=== PATIENT | female | born 1975 | race American Indian/Alaskan Native ===

== ENCOUNTER → 2019-09-01 13:09 | Outpatient (BNVA) | payer MEDICAID, SELFPAY | PROVIDERS: Family Provider Nurse Practitioner Family; PCP Nurse Practitioner Family; Visit Provider Psychiatry & Neurology Psychiatry | DX: F33.2 Major depressive disorder, recurrent severe without psychotic features (principal); F43.12 Post-traumatic stress disorder, chronic; F60.3 Borderline personality disorder | CPT/HCPCS: 99213 ==

== ENCOUNTER 2019-09-02 05:59 | Day surgery (SDC) | payer MEDICAID, SELFPAY ==
[2019-09-02 06:13] LABS: OR HCG Qualitative Urine Negative (Negative)
[2019-09-02 06:26] VITALS: BP 148/98; PULSE 62; RESP 18; TEMP 36.6; O2SAT 94
--- NOTE | 2019-09-02 06:35 | ANES.PREANES ---
Pre-Anesthetic Assessment Pre-Anesthetic Assessment: Height/Weight: Height 1.71 m Weight 138.346 kg Preop Diagnosis: Right carpal tunnel syndrome Proposed Procedure: Operation Date: 09/02/19 07:00 Proposed Procedures p Carpal Tunnel Release(Right) - Issac Marino MD Was Beta Damian taken within 24 hours: N/A PFSH Anesthesia PFSH: Medical History (Updated 09/01/19 @ 10:58 by More Mejia RN) H/O nephrolithotomy with removal of calculi (Acute) Surgical History H/O wrist surgery (Acute) Left wrist surg. H/O: knee surgery (Acute) Right knee surg History of facial surgery (Acute) Social History (Updated 09/01/19 @ 13:34 by Jed Gomez LPN) Smoking and tobacco status: current every day smoker cigarettes Packs smoked per day: 0.5 Years cigarettes smoked: 20 Quit status (tobacco): has tried quititng Number of times tried to quit tobacco: 4 Second hand smoke exposure: No Smoking risk assessment/counseling performed?: No Data Anesthesia Other Labs: Laboratory Results - last 48 hr 09/02/19 06:11 Urine HCG, Qual Negative Cardiac Studies: No Data to Display
[2019-09-02] MEDS: sodium chloride 0.9% 1,000 ML 30 ML IV (06:50)
--- NOTE | 2019-09-02 06:58 | ANES.PREANES ---
Pre-Anesthetic Assessment Pre-Anesthetic Assessment: Height/Weight: Height 1.71 m Weight 138.346 kg Temp Pulse Resp BP Pulse Ox 97.9 F 62 18 148/98 94 09/02/19 06:26 09/02/19 06:26 09/02/19 06:26 09/02/19 06:26 09/02/19 06:26 Preop Diagnosis: Right carpal tunnel syndrome Proposed Procedure: Operation Date: 09/02/19 07:00 Proposed Procedures p Carpal Tunnel Release(Right) - Issac Marino MD Last intake: Intake Last Liquid Date 09/02/19 Last Liquid Time 05:00 Last Solid Date 09/01/19 Last Solid Time 23:00 Social: Social History: Tobacco Packs per day: 1/2 ppd Pack years: 14.5 Airway: Submandibular: WNL Cervical ROM: WNL MP: 1 Additional comments: edentulous CV/HEM: CV/HEM: HTN Comments: rx'd 2 months : Comments: incontience Musc/skel: Musc/skel: Lower Back Pain Comments: left radiculopathy Anesthetic Plan: ASA status: III PFSH Anesthesia PFSH: Medical History (Updated 09/01/19 @ 10:58 by More Mejia RN) H/O nephrolithotomy with removal of calculi (Acute) Surgical History H/O wrist surgery (Acute) Left wrist surg. H/O: knee surgery (Acute) Right knee surg History of facial surgery (Acute) Social History (Updated 09/01/19 @ 13:34 by Jed Gomez LPN) Smoking and tobacco status: current every day smoker cigarettes Packs smoked per day: 0.5 Years cigarettes smoked: 20 Quit status (tobacco): has tried quititng Number of times tried to quit tobacco: 4 Second hand smoke exposure: No Smoking risk assessment/counseling performed?: No Data Anesthesia Other Labs: Laboratory Results - last 48 hr 09/02/19 06:11 Urine HCG, Qual Negative Cardiac Studies: No Data to Display
--- NOTE | 2019-09-02 07:08 | PM.HPUD ---
H&P update H&P Update: DATE OF SURGERY/PROCEDURE: 09/02/19 DATE H&P PERFORMED: 07/30/19 H&P UPDATE INFORMATION: No changes to prior documentation PREOP DIAGNOSIS: Right Carpal Tunnel Syndrom PRIMARY INDICATION FOR PROCEDURE: Same PLANNED PROCEDURE: Operation Date: 09/02/19 07:00 Proposed Procedures p Carpal Tunnel Release(Right) - Issac Marino MD Full H&P Perinent History: Medical/Surgical History: Medical History (Updated 08/31/19 @ 16:22 by Jed Gomez LPN) H/O nephrolithotomy with removal of calculi (Acute) Social History: Social History Smoking and tobacco status: current every day smoker cigarettes Packs smoked per day: 0.5 Years cigarettes smoked: 20 Quit status (tobacco): has tried quititng Number of times tried to quit tobacco: 4 Second hand smoke exposure: No Smoking risk assessment/counseling performed?: No
--- NOTE | 2019-09-02 08:01 | PM.HPUD ---
H&P update H&P Update: DATE OF SURGERY/PROCEDURE: 09/02/19 DATE H&P PERFORMED: 07/30/19 PLANNED PROCEDURE: Operation Date: 09/02/19 07:00 Proposed Procedures p Carpal Tunnel Release(Right) - Issac Marino MD Full H&P HPI: HPI: Patient is a 44-year-old here for elective right carpal tunnel release. She was previously seen in clinic on 07/30/2019 and surgery was discussed. ROS: ROS: He is a smoker but denies any shortness of breath or coughing. She has no chest pain or palpitations. She describes numbness in her right hand digits as previously outlined Medications/Allergies: Current Medications: Current Medications Generic Name Dose Route Start Last Admin Trade Name Freq PRN Reason Stop Dose Admin Sodium Chloride 1,000 mls @ 30 ml s/hr 09/02/19 05:45 09/02/19 06:50 Sodium Chloride 0.9% IV 09/03/19 05:44 30 mls/hr .Q24H JORJE Administration Perinent History: Medical/Surgical History: Medical History (Updated 08/31/19 @ 16:22 by Jed Gomez LPN) H/O nephrolithotomy with removal of calculi (Acute) Social History: Social History Smoking and tobacco status: current every day smoker cigarettes Packs smoked per day: 0.5 Years cigarettes smoked: 20 Quit status (tobacco): has tried quititng Number of times tried to quit tobacco: 4 Second hand smoke exposure: No Smoking risk assessment/counseling performed?: No Pertinent Exam Findings: PHYSICAL EXAM: alert, oriented x 3, clear to auscultation bilaterally and regular rate & rhythm OTHER PERTINENT EXAM FINDINGS: The patient has a positive Tinel's and compression test across the right wrist A&P Assessment and plan (1) Right carpal tunnel syndrome: Status: Acute Code(s): G56.01 - Carpal tunnel syndrome, right upper limb Additional A&P Information We will proceed with a right carpal tunnel release as previously discussed.
[2019-09-02 08:03] VITALS: BP 142/91; PULSE 60; RESP 18; TEMP 36.1; O2SAT 96
--- NOTE | 2019-09-02 08:08 | P.OP_ITS ---
Operative Report Date of procedure: 09/02/19 Preop Diagnosis: Right carpal tunnel syndrome Post-op diagnosis: same Post-op Findings: Same Procedure Done: Right carpal tunnel release Anesthesia: Chely Estimated blood loss (mL): 10 Tourniquet time (min): 22 Complications: None Findings: No masses or space-occupying lesions were seen within the carpal tunnel Condition: stable Disposition: same day Procedure: Patient was taken to the operating room and anesthesia provided by the anesthesia service. She was prepped and draped with the arm exposed. A ti meout was performed. A 3 cm long incision was made in line with the fourth ray from the distal edge of the carpal tunnel extending proximally. The subcutaneous fat and palmar fascia was divided with a scalpel blade. Under loupe magnification the ulnar neurovascular bundle was identified distally. A hemostat could be passed under the transverse carpal ligament allowing the distal 25% to be divided. A slotted guide was then passed beneath the transverse carpal ligament and the middle 50% divided. Blunt scissors were then passed over the guide freeing the proximal ligament. The tourniquet was deflated. Hemostasis provided with electrocautery. Wound edges were infiltrated with 10 cc of a half percent Marcaine solution. Skin edges were reapproximated with 3-0 Prolene. Sterile dressings were applied. The patient was taken to outpatient in stable condition.
[2019-09-02 08:42] VITALS: BP 163/86; PULSE 63; RESP 18; O2SAT 97
== END 2019-09-02 08:49 | disposition home or self-care (01) ==
PROVIDERS: Family Provider Nurse Practitioner Family; PCP Nurse Practitioner Family; Visit Provider Orthopaedic Surgery
PROC: (CPT 64721; principal; 2019-09-02 07:00)
DX: G56.01 Carpal tunnel syndrome, right upper limb (principal); F17.210 Nicotine dependence, cigarettes, uncomplicated
CPT/HCPCS: 64721; 12345; 81025; 84703; 96365; J0690; J2001; J2250; J2704; J3490; J7030

== ENCOUNTER 2019-09-28 20:00 | Outpatient (CLI) | payer MEDICAID, SELFPAY | END 2019-09-28 20:01 | disposition home or self-care (01) | LOC: SLEEP 09-29 09:12 | PROVIDERS: Family Provider Nurse Practitioner Family; PCP Nurse Practitioner Family; Visit Provider Nurse Practitioner Family | DX: G47.33 Obstructive sleep apnea (adult) (pediatric) (principal); R09.02 Hypoxemia | CPT/HCPCS: 95810 ==

== ENCOUNTER → 2019-11-05 10:15 | Outpatient (BNVA) | payer MEDICAID, SELFPAY | PROVIDERS: Family Provider Nurse Practitioner Family; PCP Nurse Practitioner Family; Referring Provider Family Medicine; Visit Provider Obstetrics & Gynecology | DX: N39.3 Stress incontinence (female) (male) (principal); N92.0 Excessive and frequent menstruation with regular cycle | CPT/HCPCS: 80053; 84443 ==

== ENCOUNTER → 2019-11-19 11:35 | Outpatient (BNVA) | payer MEDICAID, SELFPAY | PROVIDERS: Family Provider Nurse Practitioner Family; PCP Nurse Practitioner Family; Visit Provider Psychiatry & Neurology Psychiatry | DX: F60.3 Borderline personality disorder (principal); F41.1 Generalized anxiety disorder; F43.12 Post-traumatic stress disorder, chronic; F33.2 Major depressive disorder, recurrent severe without psychotic features; F17.200 Nicotine dependence, unspecified, uncomplicated | CPT/HCPCS: 99214 ==

== ENCOUNTER → 2019-11-25 10:53 | Outpatient (BNVA) | payer MEDICAID, SELFPAY | PROVIDERS: Family Provider Nurse Practitioner Family; PCP Nurse Practitioner Family; Visit Provider Counselor Professional | DX: F60.3 Borderline personality disorder (principal); F43.12 Post-traumatic stress disorder, chronic | CPT/HCPCS: 90834 ==

== ENCOUNTER → 2019-12-02 10:48 | Outpatient (BNVA) | payer MEDICAID, SELFPAY | PROVIDERS: Family Provider Nurse Practitioner Family; PCP Nurse Practitioner Family; Visit Provider Counselor Professional | DX: F43.12 Post-traumatic stress disorder, chronic (principal) | CPT/HCPCS: 90834 ==

== ENCOUNTER → 2019-12-03 15:51 | Outpatient (BNVA) | payer MEDICAID, SELFPAY | PROVIDERS: Family Provider Nurse Practitioner Family; PCP Nurse Practitioner Family; Visit Provider Obstetrics & Gynecology | DX: N92.0 Excessive and frequent menstruation with regular cycle (principal) | CPT/HCPCS: 76830 ==

== ENCOUNTER → 2019-12-04 07:31 | Outpatient (BNVA) | payer MEDICAID, SELFPAY | PROVIDERS: Family Provider Nurse Practitioner Family; PCP Nurse Practitioner Family; Visit Provider Obstetrics & Gynecology | DX: N92.0 Excessive and frequent menstruation with regular cycle (principal) | CPT/HCPCS: 88305 ==

== ENCOUNTER → 2019-12-09 08:30 | Outpatient (BNVA) | payer MEDICAID, SELFPAY | PROVIDERS: Family Provider Nurse Practitioner Family; PCP Nurse Practitioner Family; Visit Provider Counselor Professional | DX: F43.12 Post-traumatic stress disorder, chronic (principal); F33.2 Major depressive disorder, recurrent severe without psychotic features; F41.1 Generalized anxiety disorder | CPT/HCPCS: 90834 ==

== ENCOUNTER → 2019-12-11 08:05 | Outpatient (BNVA) | payer MEDICAID, SELFPAY | PROVIDERS: Family Provider Nurse Practitioner Family; PCP Nurse Practitioner Family; Visit Provider Counselor Professional | DX: F43.12 Post-traumatic stress disorder, chronic (principal); F60.3 Borderline personality disorder; F33.2 Major depressive disorder, recurrent severe without psychotic features | CPT/HCPCS: 90834 ==

== ENCOUNTER → 2019-12-17 09:05 | Outpatient (BNVA) | payer MEDICAID, SELFPAY | PROVIDERS: Family Provider Nurse Practitioner Family; PCP Nurse Practitioner Family; Visit Provider Counselor Professional | DX: F43.12 Post-traumatic stress disorder, chronic (principal); F60.3 Borderline personality disorder | CPT/HCPCS: 90834 ==

== ENCOUNTER → 2019-12-25 07:37 | Outpatient (BNVA) | payer MEDICAID, SELFPAY | PROVIDERS: Family Provider Nurse Practitioner Family; PCP Nurse Practitioner Family; Visit Provider Counselor Professional | DX: F43.12 Post-traumatic stress disorder, chronic (principal); F60.3 Borderline personality disorder | CPT/HCPCS: 90834 ==

== ENCOUNTER → 2019-12-29 08:18 | Outpatient (BNVA) | payer MEDICAID, SELFPAY | PROVIDERS: Family Provider Nurse Practitioner Family; Visit Provider Counselor Professional | DX: F43.12 Post-traumatic stress disorder, chronic (principal); F60.3 Borderline personality disorder | CPT/HCPCS: 90834 ==

== ENCOUNTER → 2020-01-05 08:47 | Outpatient (BNVA) | payer MEDICAID, SELFPAY | PROVIDERS: Family Provider Nurse Practitioner Family; Visit Provider Counselor Professional | DX: F43.12 Post-traumatic stress disorder, chronic (principal); F60.3 Borderline personality disorder | CPT/HCPCS: 90834 ==

== ENCOUNTER → 2020-01-08 11:02 | Outpatient (BNVA) | payer MEDICAID, SELFPAY | PROVIDERS: Family Provider Nurse Practitioner Family; Visit Provider Obstetrics & Gynecology | DX: N39.3 Stress incontinence (female) (male) (principal); N92.0 Excessive and frequent menstruation with regular cycle | CPT/HCPCS: 80053; 81000; 85027 ==

== ENCOUNTER 2020-01-12 08:23 | Day surgery (SDC) | payer MEDICAID, SELFPAY ==
[2020-01-08 14:20] VITALS: BMI 47.1
[2020-01-12] VITALS (7 sets, daily range): BP systolic 142–149; BP diastolic 87–98; PULSE 69–87; RESP 12–23; TEMP 36.2–37.1; O2SAT 90–100
[2020-01-12 08:53] LABS: OR HCG Qualitative Urine Negative (Negative)
--- NOTE | 2020-01-12 09:04 | P.ANESASSM_ITS ---
Pre-Anesthetic Assessment Pre-Anesthetic Assessment: Height/Weight: Height 1.73 m Weight 140.614 kg Temp Pulse Resp BP Pulse Ox 97.1 F L 69 18 142/90 95 01/12/20 08:43 01/12/20 08:43 01/12/20 08:43 01/12/20 08:43 01/12/20 08:43 Preop Diagnosis: Menorrhagia, Dysmenorrhea, Stress urinary incontinence Proposed Procedure: Operation Date: 01/12/20 09:35 Proposed Procedures p Hysteroscopy w/ Ablation w/ Novasure/[id number]/N92.0/N94.6/R32(Not Applicable) - Jah Barrera MD s Single incision suburethral sling(Not Applicable) - Jah Barrera MD Last intake: Intake Last Liquid Date 01/12/20 Last Liquid Time 23:00 Last Solid Date 01/11/20 Last Solid Time 23:00 Social: Social History: No alcohol and No tobacco Exam: Pre-Anes Outpt Exam: alert, oriented x 3, clear to auscultation bilaterally and regular rate & rhythm Airway: Submandibular: WNL Cervical ROM: WNL MP: 2 Dentition: False (upper) and Other (poor dentation) History/ROS: No significant history except as noted Pulmonary: Pulmonary: SHARPE CV/HEM: CV/HEM: HTN : : None reported Hepatic: Hepatic: None reported GI: GI: None reported Metabolic: Metabolic: Morbid obesity Neuropsych: Neuropsych: Anxiety, Bipolar and Depression Anesthetic Plan: ASA status: 3 Anesthesia: Anesthesia Evaluation and General Risk of > 500 ml blood loss (7ml/kg in children): No PFSH Anesthesia PFSH: Medical History Borderline personality disorder Generalized anxiety disorder Hypertension Major depressive disorder, recurrent severe without psychotic features Post-traumatic stress disorder, chronic Renal stones Patient with multiple treatment of kidney stones of the left kidney. Surgical History H/O wrist surgery Left wrist surg. History of arthroscopy of right knee (10/05/08) With partial medial and lateral meniscectomy, Chondroplasty of patellofemoral joint. [place]. Wei [place] [facility] [place], [place]. History of facial surgery Treatment of abscess History of lithotripsy (04/17/10) Left lithotripsy, Cystoscopy with ureterorenoscopy, ureteral stent placement. Performed by Dr. Ochoa at [facility] [place], [place]. History of lithotripsy (03/21/09) Left kidney. Performed by Dr. Ochoa at [facility] [place]. History of lithotripsy (12/27/08) Left kidney. Performed by Dr. Ochoa at [facility] in [place]. History of lithotripsy (11/22/08) Left kidney, Cystoscopy with ureteral stent. Performed by Dr. Ochoa at [facility] [place]. History of tubal ligation (06/29/09) Essure. Performed by Dr. Winchester at [facility] in [place], [place]. Family History Family/Other Diabetes Paternal uncle Heart disease maternal aunt Breast cancer Maternal great aunt Thyroid condition maternal aunt Grandmother Diabetes Maternal Heart disease maternal Social History Smoking and tobacco status: current every day smoker cigarettes Packs smoked per day: 0.5 Years cigarettes smoked: 20 Quit status (tobacco): has tried quititng Number of times tried to quit tobacco: 4 Alcohol intake: never Substance/Drug Use: never Data Anesthesia Other Labs: Laboratory Results - last 48 hr 01/12/20 08:51 Urine HCG, Qual Negative Cardiac Studies: No Data to Display
[2020-01-12] MEDS: ketorolac 30 mg/mL INJ IVP (09:10)
[2020-01-12] MEDS: phenazopyridine 100 mg Tablet 200 MG PO (09:10)
[2020-01-12] MEDS: sodium chloride 0.9% 1,000 ML 30 ML IV (09:11)
--- NOTE | 2020-01-12 09:40 | W.PM.OPSUD ---
Surgery/Procedure H&P Update DATE OF PROCEDURE: January 12, 2020 DATE H&P PERFORMED: 01/08/20 H&P UPDATE INFORMATION: I have reviewed H&P completed within last 30 days, I have examined patient prior to procedure, No changes to prior documentation and H&P is in [facility] EMR on date indicated PREOP DIAGNOSIS: Menorrhagia, Dysmenorrhea, Stress urinary incontinence PLANNED PROCEDURE: Operation Date: 01/12/20 09:35 Proposed Procedures p Hysteroscopy w/ Ablation w/ Novasure/[id number]/N92.0/N94.6/R32(Not Applicable) - Jah Barrera MD s Single incision suburethral sling(Not Applicable) - Jah Barrera MD
[2020-01-12] MEDS: vasopressin 20 unit/mL INJ INJECTION (10:05)
--- NOTE | 2020-01-12 10:47 | P.OP_ITS ---
Operative Report Date of procedure: January 12, 2020 Pre-op Diagnosis: Menorrhagia, Dysmenorrhea, Stress urinary incontinence Post-op Diagnosis: Menorrhagia, Dysmenorrhea, Stress urinary incontinence Procedure Done: Single incision suburethral sling, Cystoscopy, Hysteroscopy with D&C and endometrial ablation with NovaSure, Paracervical block Specimens removed/disposition: Endometrial curettings with polyp Surgeon: Jah Barrera Anesthesia: General and Other (Paracervical block with 2% lidocaine with epineph rine) Estimated blood loss (mL): 10 IV fluids (mL): 600 Complications: None Findings: Small polyp noted in the right cornual region of the uterus. No other abnormalities noted in the endometrial cavity. Both tubal ostia identified. Minimal uterine prolapse. First to second-degree cystocele noted. Normal- appearing bladder with no masses or abnormalities noted inside of the bladder. Brief History: Patient is a 44-year-old white female 2, para 1-0-1-1 who currently has Esher present for sterilization. She presented to the office initially with complaint of urinary incontinence. She reported that she had been leaking urine since her last delivery. She reports leaking urine with changes in position and leaks without even knowing that she had leaked. She also leaks with coughing, sneezing, laughing. She states her leaking is severe enough that she wears pads daily. On exam, she was found to have hypermobility to the urethra. Treatment options were discussed and she is presenting for a suburethral sling. She also complained of heavy, painful menstrual bleeding. Her bleeding was regular in timing and she would bleed for 4 days with 3 days being heavy. During the heaviest times, she would change a pad and tampon every 1-1/2 to 2 hours and will still bleed through to her clothing at times. She reported dime sized clots. She had used control pills in the past. Ultrasound had been performed which showed a normal-appearing uterus with normal endometrial lining. Hysteroscopy in the office was performed with no abnormalities noted. As result of the heavy bleeding, she wished to proceed to surgical treatment by endometrial ablation. Procedure: The patient was taken to the operating room where general anesthesia was obta ined. She was prepped and draped in the usual sterile fashion in the dorsal supine position with legs in Deangelo style stirrups. Sequential compression boots had been placed prior to starting the case. Patient had voided just before coming to the operating room. Exam under anesthesia was performed and the patient was noted to have minimal uterine prolapse with first to second-degree cystocele. A weighted speculum was placed in the vagina and the cervix was grasped with a single-tooth tenaculum. A paracervical block was performed with a total of 10 mL of 2% lidocaine with epinephrine used. The cervix was serially dilated until a operative hysteroscope could be passed. Crystalloid solution was used as a distention media. The endometrial cavity was inspected and appeared normal. She did have a small polyp in the right cornual region of the uterus. Both tubal ostia were visualized.. Using sharp curette, the polyp was removed. Using the NovaSure sound, endometrial cavity length was measured at 5.5 cm. The NovaSure device was inserted and device was deployed. The device was moved up and down and left and right until no further with adjustment occurred. Uterine width was measured at 4.8 cm. Settings were entered in the NovaSure machine and wattage was set at 145 [address]. Cavity integrity check was performed and integrity confirmed. Device was then activated. Total treatment time was 48 seconds. Device was removed. The tenaculum was removed and there was minimal bleeding from the tenaculum site. Arreola catheter was inserted. The suburethral area was injected with dilute Pitressin solution. A vertical incision was made underneath the urethra in the midline with a knife. The skin was bluntly dissected off of the periurethral fascia bilaterally. Using a solyx single incision suburethral sling, the sling was inserted at the mid urethral level at a 45 degree angle to the urethra and brought behind the pubic rami on the right side. This was repeated in a similar fashion on the left side and the sling tensioned until it was set just against the periurethral tissue. Catheter was removed and cystoscopy performed. Bladder was normal in appearance with no masses noted. No sling material noted within the bladder or urethra. Approximately 100 mL of fluid was left within the bladder. The skin under the urethra was reapproximated using 3-0 Vicryl suture in a running locking fashion. Patient tolerated the procedure well. Sponge and needle counts were correct. DRAINS: None POSTOPERATIVE STATUS: The patient was transferred to the recovery room in s atisfactory condition DISPOSITION: Discharge to home when criteria was met. Patient to void prior to discharge. If unable to void, then will be sent home with either catheter or self-catheterization. FOLLOWUP APPOINTMENT: Followup appointment had been scheduled on 01/25/2020 in my office. MEDICATIONS: She received prescriptions for: [place] 5/325, 1 to 2 tablets every 6 hours as needed for pain, #10 10, 0 refills She may resume her usual home medications
--- NOTE | 2020-01-12 11:15 | P.HPUD_ITS ---
Surgery/Procedure H&P Update DATE OF PROCEDURE: January 12, 2020 DATE H&P PERFORMED: 01/08/20 H&P UPDATE INFORMATION: I have reviewed H&P completed within last 30 days, I have examined patient prior to procedure, No changes to prior documentation and H[place] is in [facility] [place] on date indicated PREOP DIAGNOSIS: Menorrhagia, Dysmenorrhea, Stress urinary incontinence PLANNED PROCEDURE: Operation Date: 01/12/20 09:35 Proposed Procedures p Hysteroscopy w/ Ablation w/ Novasure/[id number]/N92.0/N94.6/R32(Not Applicable) - Jah Barrera MD s Single incision suburethral sling(Not Applicable) - Jah Barrera MD
--- NOTE | 2020-01-12 12:11 | PC.NURSE ---
removed packing per doctor orders. patient voided 200ml of orange colored urinel. bladder scan performed only 12ml remained. results given to dr. james. patient tolerated well.
== END 2020-01-12 13:13 | disposition home or self-care (01) ==
PROVIDERS: PCP Nurse Practitioner Family; Visit Provider Obstetrics & Gynecology
PROC: 0U598ZZ Destruction of Uterus, Via Natural or Artificial Opening Endoscopic (ICD-10-PCS; CPT 58563; principal; 2020-01-12 09:35)
PROC: (CPT 57288; 2020-01-12 09:35)
PROC: (CPT 58120; 2020-01-12 09:35)
DX: N92.0 Excessive and frequent menstruation with regular cycle (principal); N94.6 Dysmenorrhea, unspecified; N39.3 Stress incontinence (female) (male); I10 Essential (primary) hypertension; E66.01 Morbid (severe) obesity due to excess calories; Z68.42 Body mass index [BMI] 45.0-49.9, adult; F41.9 Anxiety disorder, unspecified; F17.210 Nicotine dependence, cigarettes, uncomplicated; Z79.1 Long term (current) use of non-steroidal anti-inflammatories (NSAID)
CPT/HCPCS: 57288; 58563; 12345; 84703; 88305; 96374; C1771; J0330; J0690; J1100; J1885; J2001; J2405; J2704; J3010; J3490; J7030

== ENCOUNTER → 2020-01-21 08:05 | Outpatient (BNVA) | payer MEDICAID, SELFPAY | PROVIDERS: PCP Nurse Practitioner Family; Visit Provider Counselor Professional | DX: F43.12 Post-traumatic stress disorder, chronic (principal); F60.3 Borderline personality disorder | CPT/HCPCS: 90834 ==

== ENCOUNTER 2020-01-22 11:23 | Emergency (ER) | payer MEDICAID, SELFPAY ==
[2020-01-22 11:28] VITALS: BP 138/78; PULSE 91; RESP 17; TEMP 37; O2SAT 95; BMI 46.3
--- NOTE | 2020-01-22 11:37 | ED_ITS ---
HPI - Abdominal Pain General: Chief Complaint: Abdominal Pain Stated Complaint: abd pain/poss gallbladder/sent by dr friend Time Seen by Provider: 01/22/20 11:30 History of Present Illness: HPI narrative: Patient comes in today with complaints of left upper quadrant abdominal pain. Patient states that she has had pain on and off in this area for the last few weeks. States that nothing seems to improve with our seems to make it worse. She has been seen her provider who thought that maybe she was having some gallbladder pain. Patient appears well. Patient appears in mild to no pain. Patient has recently had a appellation for some dysfunctional uterine bleeding about 2 weeks ago. Patient does have some mild vaginal drainage but has been told that that was normal post procedure. Patient denies any fever, nausea vomiting, or syncope. Review of Systems General: Reports: 10 or more systems reviewed and unremarkable except in HPI and below GI: Reports: abdominal pain PFS ED PFSH: Medical History (Updated 01/22/20 @ 14:08 by BRIDGET Levy) Borderline personality disorder Generalized anxiety disorder Hypertension Major depressive disorder, recurrent severe without psychotic features Post-traumatic stress disorder, chronic Renal stones Patient with multiple treatment of kidney stones of the left kidney. Surgical History H/O wrist surgery Left wrist surg. History of arthroscopy of right knee (10/05/08) With partial medial and lateral meniscectomy, Chondroplasty of patellofemoral joint. Performed by Dr. Wei at [facility] in [place], [place]. History of facial surgery Treatment of abscess History of lithotripsy (04/17/10) Left lithotripsy, Cystoscopy with ureterorenoscopy, ureteral stent placement. Performed by Dr. Ochoa at [facility] in [place], [place]. History of lithotripsy (03/21/09) Left kidney. Performed by Dr. Ochoa at [facility] in [place], [place]. History of lithotripsy (12/27/08) Left kidney. Performed by Dr. Ochoa at [facility] in [place], [place]. History of lithotripsy (11/22/08) Left kidney, Cystoscopy with ureteral stent. Performed by Dr. Ochoa at [facility] in [place], [place]. History of tubal ligation (06/29/09) Essure. Performed by Dr. Winchester at [facility] in [place], [place]. Family History Family/Other Diabetes Paternal uncle Heart disease maternal aunt Breast cancer Maternal great aunt Thyroid condition maternal aunt Grandmother Diabetes Maternal Heart disease maternal Social History Smoking and tobacco status: current every day smoker cigarettes Packs smoked per day: 0.5 Years cigarettes smoked: 20 Quit status (tobacco): has tried quititng Number of times tried to quit tobacco: 4 Alcohol intake: never Physical Exam Const: COMMON NORMALS: no acute distress and patient oriented x3 GENERAL APPEARANCE: cooperative HENMT: COMMON NORMALS: normocephalic and Normal external nose present HEAD & SCALP: normal to inspection and normocephalic NOSE: Normal external nose present MOUTH: Normal oral and palatal mucosa present THROAT: posterior oropharynx normal Eye: GENERAL EYE: appearance normal, both eyes and all related structures Neck/C-Spine: COMMON NORMALS: full ROM Lymph: LYMPHATIC: no lymphadenopathy noted Chest: COMMONS NORMALS: normal inspection of the chest Resp: COMMON NORMALS: normal respiratory effort EFFORT & INSPECTION: Yes able to speak in complete sentences Cardio: COMMON NORMALS: regular rate and regular rhythm RATE: regular rate RHYTHM: regular rhythm GI: COMMON NORMALS: Soft to palpation INSPECTION: Yes normal to inspection AUSCULTATION: Yes normoactive bowel sounds PALPATION: Yes Soft to palpation and Yes Tenderness to palpation present (GI) Details: LUQ : COMMON NORMALS: Yes no CVA tenderness BLADDER/KIDNEY EXAM: Yes no CVA tenderness Back/Pelvis: COMMON NORMALS: no CVA tenderness and thoracic and lumbar spine normal to inspection Extremity: COMMON NORMALS: normal to inspection Neuro: COMMON NORMALS: patient oriented x3 and moves all extremities Psych: COMMON NORMALS: mental status grossly normal and cooperative Skin: COMMON NORMALS: no rashes or lesions noted GENERAL SKIN EXAM: no rashes or lesions noted Course Vital Signs: Vital signs: Vital Signs Temperature 98.6 F 01/22/20 11:28 Pulse Rate 76 01/22/20 12:52 Respiratory Rate 20 H 01/22/20 12:52 Blood Pressure 127/96 01/22/20 12:52 Pulse Oximetry 93 01/22/20 12:52 MDM - Abdominal Pain MDM Narrative: Medical decision making narrative: Patient comes in today with left upper quadrant abdominal pain. Patient reports that the pain sometimes radiates up into her chest. On exam patient has left upper abdominal tenderness. Abdomen otherwise is normal. Normal bowel sounds. Vital signs were normal. Respirations are even. Skin is warm and dry. Differential diagnosis includes but not limited to ACS, angina, peptic ulcer disease, renal calculi, cholecystitis, pancreatitis, diverticulitis. Laboratory values noted a normal CBC and a normal BMP with no signs of liver inflammation. Urinalysis was normal. Chest x-ray noted some abnormality in the left hilar lung, with recommendations for CT scan. CT scan of the abdomen pelvis and chest was done it was noted that patient had scar tissue in the lung, but she also had a large obstructing renal calculi in the left kidney. No hydronephrosis was noted though. Reviewed with patient with recommendations for follow-up with urology. Patient was given medications for pain. Patient reported understanding of care plan and need for follow-up or return to the ER. Lab Data: Labs: Lab Results 01/22/20 01/22/20 01/22/20 Range/Units 11:51 11:51 11:51 WBC 7.3 (4.0-10.0) 10^3/ uL RBC 4.67 (4.1-5.3) 10^6/u L Hgb 13.7 (11.5-15.3) g/dL Hct 43.3 (37.0-47.0) % MCV 92.7 (81-99) fL MCH 29.3 (28.0-34.0) pg MCHC 31.6 (30.0-36.0) g/dL RDW 14.3 (12.1-15.1) % Plt Count 281 (130-400) 10^3/c mm MPV 9.8 (7.4-10.4) fL Neut % (Auto) 62.2 % Lymph % (Auto) 27.5 % Towner % (Auto) 7.1 % Eos % (Auto) 2.6 % Baso % (Auto) 0.5 % Neut # (Auto) 4.5 (1.8-7.7) 10^3/u L Lymph # (Auto) 2.0 (0.8-4.8) 10^3/u L Towner # (Auto) 0.5 (0.2-0.9) 10^3/u L Eos # (Auto) 0.2 (0.0-0.8) 10^3/u L Baso # (Auto) 0.0 (0.0-0.1) 10^3/u L Nucleated RBC % (a uto) 0 % Nucleated RBCs # 0.0 /100WBC D-Dimer 0.35 (0-0.59) ug/mIFE U Sodium 141 (136-145) mmol/L Potassium 3.8 (3.5-5.1) mmol/L Chloride 103 (98-107) mmol/L Carbon Dioxide 26 (22-29) mmol/L Anion Gap 15.8 (5-19) BUN 9 (6-20) mg/dL Creatinine 0.6 (0.5-0.9) mg/dL GFR Calculation 108.1 (90-130) mL/min Glucose 122 H (65-115) mg/dL Calculated Osmolal ity 289 (285-295) mOsm/k g Calcium 9.2 (8.5-10.5) mg/dL Total Bilirubin 0.3 (0.15-1.2) mg/dL AST 13 (0-32) U/L ALT 15 (0-33) U/L Alkaline Phosphata se 78 (35-105) IU/L Total Protein 6.1 L (6.6-8.7) g/dL Albumin 3.9 (3.5-5.2) g/dL Globulin 2.2 (1.3-4.6) g/dL Lipase 48 (13-60) U/L Urine Color (Yellow) Urine Appearance (CLEAR) Urine pH (5-7) Ur Specific Gravit y (1.005-1.030) Urine Protein (Negative) Urine Glucose (UA) (Normal) Urine Ketones (Negative) Urine Blood (Negative) Urine Nitrate (Negative) Urine Bilirubin (NEGATIVE) Urine Urobilinogen (Negative) mg/dL Ur Leukocyte Rebecca ase (Negative) Urine RBC (0-2) /hpf Urine WBC (0-5) /hpf Ur Squamous Epith Cells (0-5) Urine Bacteria (NONE) Urine Mucus 01/22/20 Range/Units 12:00 WBC (4.0-10.0) 10^3/ uL RBC (4.1-5.3) 10^6/u L Hgb (11.5-15.3) g/dL Hct (37.0-47.0) % MCV (81-99) fL MCH (28.0-34.0) pg MCHC (30.0-36.0) g/dL RDW (12.1-15.1) % Plt Count (130-400) 10^3/c mm MPV (7.4-10.4) fL Neut % (Auto) % Lymph % (Auto) % Towner % (Auto) % Eos % (Auto) % Baso % (Auto) % Neut # (Auto) (1.8-7.7) 10^3/u L Lymph # (Auto) (0.8-4.8) 10^3/u L Towner # (Auto) (0.2-0.9) 10^3/u L Eos # (Auto) (0.0-0.8) 10^3/u L Baso # (Auto) (0.0-0.1) 10^3/u L Nucleated RBC % (a uto) % Nucleated RBCs # /100WBC D-Dimer (0-0.59) ug/mIFE U Sodium (136-145) mmol/L Potassium (3.5-5.1) mmol/L Chloride (98-107) mmol/L Carbon Dioxide (22-29) mmol/L Anion Gap (5-19) BUN (6-20) mg/dL Creatinine (0.5-0.9) mg/dL GFR Calculation (90-130) mL/min Glucose (65-115) mg/dL Calculated Osmolal ity (285-295) mOsm/k g Calcium (8.5-10.5) mg/dL Total Bilirubin (0.15-1.2) mg/dL AST (0-32) U/L ALT (0-33) U/L Alkaline Phosphata se (35-105) IU/L Total Protein (6.6-8.7) g/dL Albumin (3.5-5.2) g/dL Globulin (1.3-4.6) g/dL Lipase (13-60) U/L Urine Color Yellow (Yellow) Urine Appearance Sl cloudy A (CLEAR) Urine pH 5 (5-7) Ur Specific Gravit y 1.020 (1.005-1.030) Urine Protein Neg (Negative) Urine Glucose (UA) Norm (Normal) Urine Ketones 1+ H (Negative) Urine Blood 2+ H (Negative) Urine Nitrate Negative (Negative) Urine Bilirubin Neg (NEGATIVE) Urine Urobilinogen 1 H (Negative) mg/dL Ur Leukocyte Rebecca ase Trace H (Negative) Urine RBC 0-4 H (0-2) /hpf Urine WBC 5-10 H (0-5) /hpf Ur Squamous Epith Cells 10-15 H (0-5) Urine Bacteria 2+ H (NONE) Urine Mucus 3+ EKG Data ^: EKG 1: Attestation: I personally reviewed and interpreted this EKG as follows: (1151, normal sinus rhythm, 76 bpm, no ectopy, no ST elevation.) Discharge Plan Discharge Patient Disposition: Home, Self-Care Clinical Impression: Calculus of kidney Condition: Stable Prescriptions: New hydrocodone-acetaminophen 5-325 mg tablet 1 tab PO Q6H PRN (Reason: pain) Qty: 14 RF: 0 Discontinued hydrocodone-acetaminophen 5-325 mg Tablet 1 - 2 tab PO Q6H PRN (Reason: Moderate To Severe Pain) Qty: 10 RF: 0 No Action acetaminophen [Tylenol] 325 mg tablet 650 mg PO BID PRN (Reason: fever or pain) RF: 0 gabapentin 300 mg capsule 300 mg PO TID RF: 0 Chantix Starting Month Box 0.5 mg (11)- 1 mg (42) tablets,dose pack See Rx Instructions PO PER PKG DIR Qty: 53 RF: 0 paroxetine HCl 40 mg tablet 40 mg PO QAM Qty: 30 RF: 2 oxcarbazepine [Trileptal] 150 mg tablet 150 mg PO BID Qty: 60 RF: 2 ibuprofen 600 mg tablet 600 mg PO TID PRN (Reason: Pain) RF: 0 losartan 25 mg Tablet 25 mg PO DAILY RF: 0 Discharge Orders: Discharge Order (Routine); Ordered 01/22/20 Ordered By: Denis King Referrals: Jayne Friend NP [Primary Care Provider] - Denis King, CLINIC SCHEDULER [Emergency Provider] - Discharge Diet: Usual diet Discharge Activity: Increase activity as tolerated Patient Instructions: Renal Colic (ED) Activity Restrictions/Additional Instructions: Drink plenty of water. Use medications as needed. Follow-up with primary care in 1 week. Case management will call you regarding follow-up appointment with urology. Return to the ER for high fever or worsening pain. Coding Level of Care Code ED Agency Trainer for Fernanda Nguyen Exam Comprehensive
[2020-01-22 11:50] VITALS: BP 121/70; PULSE 83; RESP 15; O2SAT 93
[2020-01-22 11:59] LABS: Basophils % 0.5 %; Eosinophils # 0.2 10^3/uL (0.0-0.8); Eosinophils % 2.6 %; Hematocrit 43.3 % (37.0-47.0); Hemoglobin 13.7 g/dL (11.5-15.3); Lymphocytes % 27.5 %; Mean Corpuscular HGB Conc 31.6 g/dL (30.0-36.0); Mean Corpuscular Hemoglobin 29.3 pg (28.0-34.0); Mean Corpuscular Volume 92.7 fL (81-99); Mean Platelet Volume 9.8 fL (7.4-10.4); Monocytes # 0.5 10^3/uL (0.2-0.9); Monocytes % 7.1 %; Neutrophils # 4.5 10^3/uL (1.8-7.7); Neutrophils % 62.2 %; Nucleated Red Blood Cells % 0 %; Platelet Count 281 10^3/cmm (130-400); Red Blood Count 4.67 10^6/uL (4.1-5.3); Red Cell Distribution Width 14.3 % (12.1-15.1); White Blood Count 7.3 10^3/uL (4.0-10.0)
--- NOTE | 2020-01-22 12:09 | XR_ITS ---
WS: [id number] PORTABLE CHEST HISTORY: Chest pain. COMPARISON: None available. Increased soft tissue and mild spiculation of the LEFT hilum. Measures 12 x 19 mm centered at the LEF T hilum. No pleural effusion or pneumothorax. Cardiac size: Normal. Mediastinum/Aorta: Normal mediastinum. No osseous abnormality seen. XR/XR chest 1V portable [id number] IMPRESSION: 1. Spiculated nodule centered at the LEFT hilum needs further evaluation. No p rior studies to indicate stability. Recommend follow-up chest CT with IV contra st. LEFT hilar neoplasm, pneumonia or scar needs to be excluded. 2. Normal heart. No pneumonia.
[2020-01-22 12:19] LABS: Alanine Aminotransferase 15 U/L (0-33); Albumin Level 3.9 g/dL (3.5-5.2); Alkaline Phosphatase 78 IU/L (35-105); Anion Gap 15.8 (5-19); Aspartate Amino Transferase 13 U/L (0-32); Blood Urea Nitrogen 9 mg/dL (6-20); Calcium 9.2 mg/dL (8.5-10.5); Carbon Dioxide 26 mmol/L (22-29); Chloride 103 mmol/L (98-107); Globulin 2.2 g/dL (1.3-4.6); Glomerular Filtration Rate 108.1 mL/min (90-130); Glucose 122 mg/dL (65-115); Lipase 48 U/L (13-60); Osmolality Calculated 289 mOsm/kg (285-295); Potassium 3.8 mmol/L (3.5-5.1); Sodium 141 mmol/L (136-145); Total Bilirubin 0.3 mg/dL (0.15-1.2); Total Protein 6.1 g/dL (6.6-8.7)
[2020-01-22 12:34] LABS: Add Urine Microscopic? YES; Bilirubin Urine Neg (NEGATIVE); Blood Urine 2+ (Negative); Glucose Urine UA Norm (Normal); Ketones Urine 1+ (Negative); Leukocyte Esterase Urine Trace (Negative); Nitrate Urine Negative (Negative); Protein Urine Neg (Negative); Urine Color Yellow (Yellow); Urobilinogen Urine 1 mg/dL (Negative); pH Urine 5 (5-7)
[2020-01-22 12:35] LABS: Add Urine Culture? No; Bacteria Urine 2+; Mucus Urine 3+; RBC Urine 0-4 /hpf (0-2)
--- NOTE | 2020-01-22 12:35 | CT_ITS ---
WS: [id number] CT CHEST, ABDOMEN AND PELVIS WITH CONTRAST. HISTORY: Abnormal chest radiograph, abdominal pain. TECHNIQUE: Contiguous 5 mm axial imaging performed through the chest, abdomen and pelvis with IV cont rast, oral contrast has not been provided. Coronal and sagittal reformats chest. Coronal and sagittal reformats through the abdomen and pelvis. All CT scans at [facility] use at least one of these dose optimization techniques: automated exposure control; mA and/or kV adjustment per patient size (includes targeted exams where dose is matched to clinical indication); or iterative reconstruct ion. CONTRAST: Omnipaque 300; 95 mL IV. DLP: 2625.05 mGy.cm COMPARISON: 06/16/[address]: Area of spiculation and soft tissue thickening at the LEFT hilum on recent chest radiograph corresponds to an area of subsegmental linear atelectasis extending from the LEFT hilum. Atelectasis extends into the medial LEFT upper lobe. No centrally obstructing lesion is identified. There is mil d groundglass attenuation bilaterally, greatest in the lower lung barron. No focal pneumonia. No pleu ral effusion or pneumothorax. Small mediastinal and hilar lymph nodes. Normal size aortic and pulmona ry artery. Abdomen CT: Liver, spleen, gallbladder and pancreas are negative. No adrenal mass. No perinephric str anding. Mild dilatation of the LEFT renal pelvis. Change in caliber at the LEFT UP junction. This has been previously described. Negative RIGHT kidney. Normal aorta. No ascites, adenopathy or free air. Small umbilical hernia contains fat. There is a large lipoma in the external oblique muscle on the RIGHT extending into the pelvis. No obs truction of the GI tract. Appendix is not definitely visualized but there is no inflammation. Pelvic CT: Nondistended urinary bladder. Bilateral tubal ovarian clips. There is a very small amount of air along the endometrial canal. No free fluid within the pelvis. Degenerative disc disease with vacuum disc phenomenon from L3-4 to L5-S1. CT/CT chest abd pel w con* IMPRESSION: 1. Soft tissue thickening and spiculation at the LEFT hilum described on radio graph corresponds to a linear subsegmental area of atelectasis in the LEFT uppe r lobe. No adenopathy or mass. 2. Chronic mild LEFT UP junction obstruction. 3. The appendix is not identified but there are no changes of appendicitis or acute inflammation in the abdomen or pelvis. 4. Is a tiny amount of air along the endometrial canal. May be due to recent i nstrumentation. Endometritis may appear similar.
[2020-01-22 12:52] VITALS: BP 127/96; PULSE 76; RESP 20; O2SAT 93
[2020-01-22] MEDS: iohexol 300 mg/mL 100 mL Btl IV (13:17)
[2020-01-22 13:29] LABS: D Dimer 0.35 ug/mIFEU (0-0.59)
[2020-01-22 14:13] VITALS: BP 157/81; PULSE 71; RESP 18; O2SAT 94
--- NOTE | 2020-01-25 10:52 | DCPLANNER ---
ict business development manager had message to schedule a follow up appointment for patient with Dr. Ochoa. ict business development manager called the office of Dr. Ochoa, spoke with Kaylie, gave clinic patients information. ict business development manager was told that patients information would be printed and given to Evonne for review. Clinic will call patient with appointment information.
--- NOTE | 2020-02-03 07:52 | DCPLANNER ---
Patient had a follow up appointment scheduled for 01.26.[address] Ochoa. Patient did attend the appointment.
== END 2020-01-22 14:13 | disposition home or self-care (01) ==
PROVIDERS: Emergency Provider Nurse Practitioner Family; PCP Nurse Practitioner Family
DX: N20.0 Calculus of kidney (principal); I10 Essential (primary) hypertension; Z87.442 Personal history of urinary calculi; F17.210 Nicotine dependence, cigarettes, uncomplicated
CPT/HCPCS: 12345; 71045; 71260; 74177; 80053; 81001; 83690; 85025; 85378; 99283; Q9967

== ENCOUNTER 2020-01-26 14:16 | Outpatient (CLI) | payer MEDICAID, SELFPAY ==
--- NOTE | 2020-01-26 14:23 | XRR_ITS ---
PROCEDURE INFORMATION: Exam: XR Abdomen, 1 View Exam date and time: 01/26/2020 2:37 PM Age: 44 years old Clinical indication: Condition or disease; Kidney or ureter condition; Calculus (stone) in kidney; Prior surgery; Surgery type: Thermalblasion, dnc, urethra sling; Additional info: Stone f/u TECHNIQUE: Imaging protocol: XR of the abdomen. Views: Frontal supine view of the abdomen. 1 View. COMPARISON: No relevant prior studies available. FINDINGS: Gastrointestinal tract: Normal. No bowel dilation. Bones/joints: Unremarkable. A calcified renal stone is seen in the projection of the left kidney measuring 11.6 mm. Postsurgical fallopian tube wires are in place. XR/XR KUB [id number] IMPRESSION: No acute findings. Left renal stone Fallopian tube wires are in place.
== END 2020-01-26 14:17 | disposition home or self-care (01) ==
PROVIDERS: PCP Nurse Practitioner Family; Visit Provider Urology
DX: N20.0 Calculus of kidney (principal); M79.672 Pain in left foot
CPT/HCPCS: 73630; 74018; 81001

== ENCOUNTER → 2020-01-28 08:29 | Outpatient (BNVA) | payer MEDICAID, SELFPAY | PROVIDERS: PCP Nurse Practitioner Family; Visit Provider Counselor Professional | DX: F43.12 Post-traumatic stress disorder, chronic (principal); F60.3 Borderline personality disorder | CPT/HCPCS: 90834 ==

== ENCOUNTER 2020-01-29 05:59 | Day surgery (SDC) | payer MEDICAID, SELFPAY ==
[2020-01-28 15:22] VITALS: BMI 48.3
[2020-01-29] VITALS (9 sets, daily range): BP systolic 124–169; BP diastolic 76–119; PULSE 70–93; RESP 15–20; TEMP 36.5–37.2; O2SAT 92–96
--- NOTE | 2020-01-29 | SCC_ITS ---
Procedure Done: Bunionectomy with double osteotomy, left CPT code 04092. Osman osteotomy left second metatarsal CPT code 89353. Correction of left second hammertoe contracture with implant CPT code 09259. 4 seconds of fluoroscopic guidance, for a cumulative dose of 0.1 mGy, was provided to Dr. Mata by the radiology department. C-arm images of the LEFT foot were saved for the patient's permanent record. NIKOS
--- NOTE | 2020-01-29 05:35 | P.ANESASSM_ITS ---
Pre-Anesthetic Assessment Pre-Anesthetic Assessment: Height/Weight: Height 1.73 m Weight 144.242 kg Preop Diagnosis: Menorrhagia, Dysmenorrhea, Stress urinary incontinence Proposed Procedure: Operation Date: 01/29/20 07:00 Proposed Procedures p [id number] anabell osteotomy left foot, 09714 correction angular deformity left 2nd metatarsal phalangeal joint(Left) - Chidi Mata DPM Familial anesthetic complications: none Was Beta Damian taken within 24 hours: N/A Last intake: NPO > 8 hrs Social: Social History: Tobacco Exam: Pre-Anes Outpt Exam: alert, oriented x 3, clear to auscultation bilaterally and regular rate & rhythm Airway: Cervical ROM: WNL MP: 3 Additional comments: Multiple missing teeth, poor dentition CV/HEM: CV/HEM: HTN Metabolic: Metabolic: Morbid obesity Musc/skel: Comments: L 2nd toe deformity Neuropsych: Neuropsych: Anxiety, Depression, HINDS and Neuropathy Anesthetic Plan: ASA status: 3 Anesthesia: General and Regional (specify below) Risk of > 500 ml blood loss (7ml/kg in children): No PFSH Anesthesia PFSH: Medical History (Updated 01/28/20 @ 17:54 by Taurus Ochoa MD) Borderline personality disorder Generalized anxiety disorder History of hysteroscopy (~01/12/20) Single incision suburethral sling, Cystoscopy, Hysteroscopy with D&C and endometrial ablation with NovaSure on 01/12/2020. Hypertension Major depressive disorder, recurrent severe without psychotic features Morbid obesity Post-traumatic stress disorder, chronic Renal stones multiple treatment of kidney stones of the left kidney. Surgical History (Updated 01/29/20 @ 02:10 by Jah Barrera MD) H/O wrist surgery Left wrist surg. History of arthroscopy of right knee (10/05/08) With partial medial and lateral meniscectomy, Chondroplasty of patellofemoral joint. Performed by Dr. Wei at [facility] in [place], [place]. History of dilatation and curettage (~12/2019) History of endometrial ablation (01/12/20) Hysteroscopy, D&C, NovaSure endometrial ablation. Performed by Dr. Barrera at [facility] in [place], [place] History of facial surgery Treatment of abscess History of lithotripsy (04/17/10) Left lithotripsy, Cystoscopy with ureterorenoscopy, ureteral stent placement. Performed by Dr. Ochoa at [facility] in [place], [place]. History of lithotripsy (03/21/09) Left kidney. Performed by Dr. Ochoa at [facility] in [place], [place]. History of lithotripsy (12/27/08) Left kidney. Performed by Dr. Ochoa at [facility] in [place], [place]. History of lithotripsy (11/22/08) Left kidney, Cystoscopy with ureteral stent. Performed by Dr. Ochoa at [facility] in [place], [place]. History of suburethral sling procedure (01/12/20) Solyx single incision suburethral sling. Performed by Dr. Barrera at [facility] in [place], [place] History of tubal ligation (06/29/09) Essure. Performed by Dr. Winchester at [facility] in [place], [place]. Family History Family/Other Diabetes Paternal uncle Heart disease maternal aunt Breast cancer Maternal great aunt Thyroid condition maternal aunt Grandmother Diabetes Maternal Heart disease maternal Denies family history of Anesthesia complication Bleeding disorder Social History Smoking and tobacco status: current every day smoker cigarettes Packs smoked per day: 0.5 Years cigarettes smoked: 20 Quit status (tobacco): has tried quititng Number of times tried to quit tobacco: 4 Alcohol intake: never Adopted: No Caregiver/support person: No Lives independently: No Marital status: Current occupational status: disabled History of recent travel: No Data Anesthesia Cardiac Studies: No Data to Display
--- NOTE | 2020-01-29 06:28 | W.PM.OPSUD ---
Surgery/Procedure H&P Update DATE OF PROCEDURE: January 29, 2020 DATE H&P PERFORMED: 01/26/20 H&P UPDATE INFORMATION: I have reviewed H&P completed within last 30 days, I have examined patient prior to procedure, No changes to prior documentation and H&P is in [facility] [place] on date indicated PREOP DIAGNOSIS: Bunion, second hammertoe, second metatarsal phalangeal joint pre-dislocation syndrome all left foot. PLANNED PROCEDURE: Operation Date: 01/29/20 07:00 Proposed Procedures p 02098 anabell osteotomy left foot, 14098 correction angular deformity left 2nd metatarsal phalangeal joint(Left) - Chidi Mata DPM
[2020-01-29 06:37] LABS: OR HCG Qualitative Urine Negative (Negative)
[2020-01-29] MEDS: sodium chloride 0.9% 500 ML 999 ML IV (06:51)
[2020-01-29] MEDS: ceFAZolin 1,000 MG in sodium chloride 0.9% (plus) 50 ML 100 MG IV (07:50)
--- NOTE | 2020-01-29 09:02 | XR_ITS ---
WS: [id number] LEFT FOOT: 3 VIEW(S) TECHNIQUE: AP, oblique and lateral. HISTORY: post op COMPARISON: 01/26/2020 Interval osteotomy proximal phalanx first toe with hardware fixation across the osteotomy site. Singl e screw overlies the first metatarsal head with bunionectomy. Additional hardware fixation at the second metatarsophalangeal joint. No soft tissue abnormality or bone destruction. Small calcaneal spur. XR/XR foot LT min 3V* [id number] IMPRESSION: 1. Status post osteotomy proximal first phalanx and bunionectomy. 2. Postsurgical changes second metatarsal head and proximal second phalanx.
--- NOTE | 2020-02-03 06:36 | PM.OP ---
Operative Report Date of procedure: January 29, 2020 Pre-op Diagnosis: Bunion, second hammertoe, second metatarsal phalangeal joint pre-dislocation syndrome all left foot. Post-op diagnosis: same Procedure Done: Bunionectomy with double osteotomy, left CPT code 91838. Osman osteotomy left second metatarsal CPT code 72121. Correction of left second hammertoe contracture with implant CPT code 70536. Implants: [place] 28 3.0 mm headless screw partially threaded cannulated. [place] 28 10 mm nitinol staple. [place] 28 TenoTac. [place] 2.0 mm twist off screw x2. 3-0 Vicryl, 4-0 Vicryl, 4-0 nylon, 3-0 Prolene. Specimens removed/disposition: None Pathology: none sent Surgeon: Chidi Mata D.P.M. Pelletizer: Kit Anesthesia: MAC Tourniquet time: 250 mmHg. IV fluids: None Urine output: None Complications: None Condition: stable Disposition: PACU Brief History: Patient is a pleasant 44-year-old female with left bunion pain, second metatarsal phalangeal joint pain in the left second hammertoe pain that has been progressive over the course of several years. Conservative treatment measures have consisted of supportive shoes, orthotics, NSAIDs, activity modifications, stretching exercises, splinting which have failed to offer relief recently. She is wishing to discuss surgical intervention. Risks include pain, bleeding, numbness, infection, swelling, bruising, surgical site dehiscence, failure to correct deformity, overcorrection of deformity, hallux varus, recurrence of deformity, transfer pressure, damage to adjacent soft tissue structures, hardware failure, delayed union, nonunion, need for further surgical intervention. Patient is agreeable and wishes to proceed. Procedure: Under mild sedation the patient was brought to the operating room and placed on the operating table in supine position. A timeout was performed. Anesthesia was administered by the anesthesia service. Local anesthesia was injected by myself consisting of 30 cc of 0.5% Marcaine plain and a left Medley block fashion and second ray block fashion. Well-padded pneumatic tourniquet was applied to the left ankle. Left lower extremity was then scrubbed, prepped and draped utilizing normal aseptic technique. Left foot was examined a weighted with an Esmarch bandage and a tourniquet was inflated to 250 mmHg. Attention was directed to the dorsal medial aspect of the left first metatarsophalangeal joint where a linear longitudinal incision was made medial and parallel to the extensor pollicis longus tendon. Dissection was carried down through skin and subcutaneous tissue utilizing a combination of sharp and blunt technique. Care was taken to retract and preserve neurovascular and tendinous structures. Bleeders were ligated and cauterized as necessary. A linear capsulotomy was performed in the head of the first metatarsal was freed of its soft tissue and capsular attachments as well as the base of the proximal phalanx medially. The medial eminence was transected utilizing a sagittal saw the first metatarsal head this was passed from operative field. Access guide was applied from medial to lateral followed by a chevron osteotomy with apex pointed distally in the head of the first metatarsal was translocated laterally and impacted back onto the first metatarsal shaft, this was temporarily fixated with a K wire followed by fixation utilizing standard AO technique this was a [place] 28 3.0 headless screw oriented from dorsal proximal to plantar distal with excellent bony apposition and compression noted screw did not extend into the metatarsal phalangeal joint. Temporary fixation was removed and the medial shelf was transected with all rough edges smoothed at the first metatarsal head. Attention was directed to the medial aspect of the proximal phalanx where a Carl osteotomy was performed maintaining a lateral cortical hinge this was fixated utilizing a 10 mm [place] 28 stapler with excellent bony apposition and compression noted. Correction of the bunion deformity was appreciated and the first ray was rectus this was confirmed with intraoperative fluoroscopy and simulated weightbearing as well as with direct visualization noted to be excellent in all 3 cardinal planes with placement of hardware appropriate. Incision site was flushed with copious amounts of sterile saline solution. Capsular structure was closed with 3-0 Vicryl. Subcutaneous tissue closed with 4-0 Vicryl and skin closed with 4-0 nylon. Attention was directed to the dorsal aspect of the left second ray where a linear longitudinal incision was made from the level of the proximal interphalangeal joint coursing proximally proximal to the second metatarsal phalangeal joint with a #15 blade. Dissection was carried down through skin and subcutaneous tissue with extensor tendons retracted medially care was taken to retract and preserve all neurovascular tendinous structures. All bleeders were ligated and cauterized as necessary. A linear capsulotomy was performed followed by a Osman osteotomy with the osteotomy oriented from dorsal proximal to plantar distal and this is parallel to the weightbearing surface of the second metatarsal. The second metatarsal head was translocated proximally and medially to allow anatomical reduction of the medial angle deformity of the second toe along with a medial capsular release at the metatarsal phalangeal joint this was fixated utilizing 2.0 mm twist off screws by Cirro x2 with excellent bony apposition and compression noted. Incision site was flushed with copious amounts of sterile saline solution. The lateral collateral ligaments of the second metatarsal phalangeal joint were reapproximated utilizing 3-0 Vicryl. The capsule of the second metatarsal plantar joint was reapproximated utilizing 3-0 Vicryl. Attention was directed to the proximal phalanx base of the second toe left foot where a K wire was driven from dorsal to plantar at the metaphyseal diaphyseal junction proximally, a small 2 cm incision was made at this level and dissection was carried down to the flexor tendons. These were split/bisected at their midsection longitudinally and a hand drill with countersink was utilized both dorsally and proximally through and through the second proximal phalanx at the proximal metaphyseal diaphyseal juncture. Next utilizing a TenoTac provided by [place]ita 28 per tsa screener recommendations and package insert the second toe was held in a rectus extended position followed by insertion of the TenoTac transferring the flexor tendons to a more proximal insertion performing a tendon balancing of the reducible hammertoe deformity of the left second toe this was noted to be excellent and the implant was tightened securely. The incision site was flushed with copious amounts of sterile saline solution. Subcutaneous tissue was reapproximated utilizing 4-0 Vicryl. This was dorsal incision closure, skin closed with 4-0 nylon. Attention was directed to the plantar incision which was flushed with saline solution and closed utilizing 3-0 Prolene simple interrupted sutures. The incision sites were then dressed with Adaptic, sterile 4 x 4's, Kerlix and Josue wrap, a cam boot was applied. Tourniquet was deflated and a prompt hyperemic response was noted to the distal digits of the left foot. The patient tolerated the procedure and anesthesia well and was transferred to the PACU with vital signs stable and vascular status intact. Following a period of postoperative monitoring she will be discharged home was given a prescription for pain medication as well as my cell phone number to contact me with any postoperative questions or concerns.
== END 2020-01-29 10:06 | disposition home or self-care (01) ==
PROVIDERS: Anesthesiology; PCP Nurse Practitioner Family; Visit Provider Podiatrist Foot & Ankle Surgery
PROC: (CPT 28308; principal; 2020-01-29 07:00)
DX: M21.612 Bunion of left foot (principal); M20.42 Other hammer toe(s) (acquired), left foot; I10 Essential (primary) hypertension; E66.01 Morbid (severe) obesity due to excess calories; Z68.42 Body mass index [BMI] 45.0-49.9, adult; F41.9 Anxiety disorder, unspecified; F33.9 Major depressive disorder, recurrent, unspecified; F17.210 Nicotine dependence, cigarettes, uncomplicated
CPT/HCPCS: 28285; 28299; 28308; 12345; 73630; 76000; 84703; C1713; C9290; J0330; J0690; J1100; J1885; J2001; J2250; J2704; J3010; J3490; J7040

== ENCOUNTER → 2020-02-04 08:20 | Outpatient (BNVA) | payer MEDICAID, SELFPAY | PROVIDERS: PCP Nurse Practitioner Family; Visit Provider Counselor Professional | DX: F60.3 Borderline personality disorder (principal); F33.2 Major depressive disorder, recurrent severe without psychotic features; F43.12 Post-traumatic stress disorder, chronic | CPT/HCPCS: 90834 ==

== ENCOUNTER → 2020-02-10 11:17 | Outpatient (BNVA) | payer MEDICAID, SELFPAY | PROVIDERS: PCP Nurse Practitioner Family; Visit Provider Podiatrist Foot & Ankle Surgery | DX: M25.872 Other specified joint disorders, left ankle and foot (principal); M77.32 Calcaneal spur, left foot | CPT/HCPCS: 73630 ==

== ENCOUNTER 2020-02-11 09:26 | Outpatient (CLI) | payer MEDICAID, SELFPAY ==
--- NOTE | 2020-02-11 09:31 | US_ITS ---
WS: [id number] Complete ABDOMINAL ULTRASOUND HISTORY: LUQ ABDOMINAL PAIN COMPARISON: 09/23/2017 Liver: 17.0 cm in length. Liver is normal size and echogenicity with no mass or intrahepatic dilatati on. Gallbladder: Normally distended with no gallstones, wall thickening or pericholecystic fluid. Gallbladder wall thickness: 0.3 cm. Pancreas: Normal size and echogenicity. CBD: 0.3 cm. Right kidney: 12.2 cm x 4.2 cm x 5.5 cm. No mass, cortical thickening or hydronephrosis. Left kidney: 12.9 cm x 5.2 cm x 5.3 cm. Suspect stone in the mid LEFT renal pelvis causing shadowing . There was a cortical stone seen on a recent CT of 01/22/2020. Spleen: Normal size and echogenicity. Abdominal aorta and IVC are within normal limits. No ascites. US/US abdomen complete* [id number] IMPRESSION: 1. Normal gallbladder. 2. Cortical calcification mid LEFT kidney with no obstruction.
== END 2020-02-11 09:27 | disposition home or self-care (01) ==
LOC: RAD 09:28
PROVIDERS: PCP Nurse Practitioner Family; Visit Provider Nurse Practitioner Family
DX: R10.12 Left upper quadrant pain (principal); N20.0 Calculus of kidney; F60.3 Borderline personality disorder; F43.12 Post-traumatic stress disorder, chronic
CPT/HCPCS: 90834; 76700

== ENCOUNTER → 2020-02-12 08:04 | Outpatient (BNVA) | payer MEDICAID, SELFPAY | PROVIDERS: PCP Nurse Practitioner Family; Visit Provider Psychiatry & Neurology Psychiatry | DX: F60.3 Borderline personality disorder (principal); F33.2 Major depressive disorder, recurrent severe without psychotic features; F43.12 Post-traumatic stress disorder, chronic; F41.1 Generalized anxiety disorder; F17.200 Nicotine dependence, unspecified, uncomplicated | CPT/HCPCS: 99214 ==

== ENCOUNTER → 2020-02-18 08:28 | Outpatient (BNVA) | payer MEDICAID, SELFPAY | PROVIDERS: PCP Nurse Practitioner Family; Visit Provider Counselor Professional | DX: F43.12 Post-traumatic stress disorder, chronic (principal); F60.3 Borderline personality disorder | CPT/HCPCS: 90834 ==

== ENCOUNTER 2020-02-24 06:38 | Day surgery (SDC) | payer MEDICAID, SELFPAY ==
[2020-02-23 11:24] VITALS: BMI 48.2
[2020-02-24] MEDS: sodium chloride 0.9% 1,000 ML 30 ML IV (06:35)
[2020-02-24 07:05] VITALS: BP 171/88; PULSE 90; RESP 20; TEMP 36.2; O2SAT 94
--- NOTE | 2020-02-24 07:25 | W.PM.OPSUD ---
Surgery/Procedure H&P Update DATE OF PROCEDURE: February 24, 2020 DATE H&P PERFORMED: 01/28/20 H&P UPDATE INFORMATION: I have reviewed H&P completed within last 30 days, I have examined patient prior to procedure and No changes to prior documentation PREOP DIAGNOSIS: Abdominal pain PRIMARY INDICATION FOR PROCEDURE: the same PLANNED PROCEDURE: Operation Date: 02/24/20 07:30 Proposed Procedures p EGD/COLON [id number] K21.9 Z12.11(Not Applicable) - Ortiz Bowser MD s Colonoscopy(Not Applicable) - Ortiz Bowser MD
--- NOTE | 2020-02-24 07:33 | P.ANESASSM_ITS ---
Pre-Anesthetic Assessment Pre-Anesthetic Assessment: Height/Weight: Height 1.73 m Weight 143.789 kg Temp Pulse Resp BP Pulse Ox 97.1 F L 90 20 H 171/88 94 02/24/20 07:05 02/24/20 07:05 02/24/20 07:05 02/24/20 07:05 02/24/20 07:05 Preop Diagnosis: Abdominal pain Proposed Procedure: Operation Date: 02/24/20 07:30 Proposed Procedures p EGD/COLON 80892 22333 K21.9 Z12.11(Not Applicable) - Ortiz Bowser MD s Colonoscopy(Not Applicable) - Ortiz Bowser MD Was Beta Damian taken within 24 hours: N/A Last intake: Intake Last Liquid Date 02/23/20 Last Liquid Time 21:00 Last Solid Date 02/22/20 Last Intake: 00:00 Social: Social History: Tobacco and No alcohol Packs per day: 1/2 ppd Pack years: 30 Exam: Pre-Anes Outpt Exam: alert, oriented x 3 and clear to auscultation bilaterally Pulmonary: Pulmonary: COPD, Sleep apnea (CPAP ) and SOB CV/HEM: CV/HEM: HTN : : None reported Hepatic: Hepatic: None reported GI: GI: GERD (controlled with nexium) Metabolic: Metabolic: Morbid obesity Musc/skel: Musc/skel: Lower Back Pain Neuropsych: Neuropsych: Anxiety and Depression Comments: borderline personality disorder Anesthetic Plan: ASA status: 3 Anesthesia: Anesthesia Evaluation and MAC PFSH Anesthesia PFSH: Medical History Borderline personality disorder Generalized anxiety disorder History of hysteroscopy (~01/12/20) Single incision suburethral sling, Cystoscopy, Hysteroscopy with D&C and endometrial ablation with NovaSure on 01/12/2020. Hypertension Major depressive disorder, recurrent severe without psychotic features Morbid obesity Post-traumatic stress disorder, chronic Renal stones multiple treatment of kidney stones of the left kidney. Surgical History H/O wrist surgery Left wrist surg. History of arthroscopy of right knee (10/05/08) With partial medial and lateral meniscectomy, Chondroplasty of patellofemoral joint. Performed by Dr. Wei at [facility] in [place], [place]. History of dilatation and curettage (~12/2019) History of endometrial ablation (01/12/20) Hysteroscopy, D&C, NovaSure endometrial ablation. Performed by Dr. Barrera at [facility] in [place], [place] History of facial surgery Treatment of abscess History of lithotripsy (04/17/10) Left lithotripsy, Cystoscopy with ureterorenoscopy, ureteral stent placement. Performed by Dr. Ochoa at [facility] in [place], [place]. History of lithotripsy (03/21/09) Left kidney. Performed by Dr. Ochoa at [facility] in [place]. History of lithotripsy (12/27/08) Left kidney. Performed by Dr. Ochoa at [facility] in [place]. History of lithotripsy (11/22/08) Left kidney, Cystoscopy with ureteral stent. Performed by Dr. Ochoa at [facility] in [place], [place] History of suburethral sling procedure (01/12/20) Solyx single incision suburethral sling. Performed by Dr. Barrera at [facility] in [place], [place] History of tubal ligation (06/29/09) Essure. Performed by Dr. Winchester at [facility] in [place], [place]. Family History Family/Other Diabetes Paternal uncle Heart disease maternal aunt Breast cancer Maternal great aunt Thyroid condition maternal aunt Grandmother Diabetes Maternal Heart disease maternal Denies family history of Anesthesia complication Bleeding disorder Social History Smoking and tobacco status: current every day smoker cigarettes Packs smoked per day: 0.5 Years cigarettes smoked: 20 Quit status (tobacco): has tried quititng Number of times tried to quit tobacco: 4 Alcohol intake: never Marital status: Female Reproductive History: Date of last menstrual period: 12/29/19 Data Anesthesia Cardiac Studies: No Data to Display
[2020-02-24 08:05] LABS: HCG, Serum Qual Negative (Negative)
[2020-02-24 08:28] VITALS: BP 107/74; PULSE 76; RESP 16; TEMP 37.1; O2SAT 95
[2020-02-24 08:40] VITALS: BP 121/86; PULSE 74; RESP 18; O2SAT 98
--- NOTE | 2020-02-24 09:05 | ANE.PACU2 ---
Inpatient post-anesthesia follow up: Airway intact: Yes Vital signs: Temperature 98.7 F Pulse Rate 74 Respiratory Rate 18 Blood Pressure 121/86 Pulse Oximetry 98 Oxygen Delivery Me thod Room Air Oxygen Flow Rate 4.0 Fraction of Inspir ed Oxygen Hydration adequate: Yes Nausea and vomiting: No Pain level: 1 Mental status: Baseline
[2020-02-25 06:10] LABS: H. Pylori / CLO Test Negative
== END 2020-02-24 08:55 | disposition home or self-care (01) ==
PROVIDERS: PCP Nurse Practitioner Family; Visit Provider Surgery
PROC: 0DJ08ZZ Inspection of Upper Intestinal Tract, Via Natural or Artificial Opening Endoscopic (ICD-10-PCS; CPT 43235; principal; 2020-02-24 07:30)
PROC: 0DJD8ZZ Inspection of Lower Intestinal Tract, Via Natural or Artificial Opening Endoscopic (ICD-10-PCS; CPT 45378; 2020-02-24 07:30)
DX: R10.9 Unspecified abdominal pain (principal); K21.0 Gastro-esophageal reflux disease with esophagitis; K44.9 Diaphragmatic hernia without obstruction or gangrene; F17.210 Nicotine dependence, cigarettes, uncomplicated; J44.9 Chronic obstructive pulmonary disease, unspecified; G47.30 Sleep apnea, unspecified; I10 Essential (primary) hypertension; K21.9 Gastro-esophageal reflux disease without esophagitis; E66.01 Morbid (severe) obesity due to excess calories; Z68.42 Body mass index [BMI] 45.0-49.9, adult; F41.1 Generalized anxiety disorder; F33.9 Major depressive disorder, recurrent, unspecified; Z82.49 Family history of ischemic heart disease and other diseases of the circulatory system; Z83.3 Family history of diabetes mellitus
CPT/HCPCS: 12345; 43239; 45378; 84703; 87077; J2704; J7030

== ENCOUNTER → 2020-03-02 08:27 | Outpatient (BNVA) | payer MEDICAID, SELFPAY | PROVIDERS: PCP Nurse Practitioner Family; Visit Provider Counselor Professional | DX: F60.3 Borderline personality disorder (principal); F43.12 Post-traumatic stress disorder, chronic | CPT/HCPCS: 90834 ==

== ENCOUNTER → 2020-03-03 14:34 | Outpatient (BNVA) | payer MEDICAID, SELFPAY | PROVIDERS: PCP Nurse Practitioner Family; Visit Provider Podiatrist Foot & Ankle Surgery | DX: M25.872 Other specified joint disorders, left ankle and foot (principal); Z98.890 Other specified postprocedural states | CPT/HCPCS: 73630 ==

== ENCOUNTER 2020-03-16 20:00 | Outpatient (CLI) | payer MEDICAID, SELFPAY | END 2020-03-16 20:01 | disposition home or self-care (01) | LOC: SLEEP 03-17 10:30 | PROVIDERS: PCP Nurse Practitioner Family; Visit Provider Nurse Practitioner Family | DX: G47.33 Obstructive sleep apnea (adult) (pediatric) (principal) | CPT/HCPCS: 95811 ==

== ENCOUNTER → 2020-03-17 08:17 | Outpatient (BNVA) | payer MEDICAID, SELFPAY | PROVIDERS: PCP Nurse Practitioner Family; Visit Provider Counselor Professional | DX: F33.2 Major depressive disorder, recurrent severe without psychotic features (principal); F43.12 Post-traumatic stress disorder, chronic | CPT/HCPCS: 90834 ==

== ENCOUNTER → 2020-03-18 07:50 | Outpatient (BNVA) | payer MEDICAID, SELFPAY | PROVIDERS: PCP Nurse Practitioner Family; Visit Provider Psychiatry & Neurology Psychiatry | DX: F60.3 Borderline personality disorder (principal); F43.12 Post-traumatic stress disorder, chronic | CPT/HCPCS: 90834; 99213 ==

== ENCOUNTER 2020-03-21 10:39 | Outpatient (CLI) | payer MEDICAID, SELFPAY ==
--- NOTE | 2020-03-21 10:45 | FL_ITS ---
WS: [id number] DOUBLE CONTRAST UPPER GI EXAMINATION HISTORY: K29.70 Gastritis, unspecified, without bleeding COMPARISON: None available. FLUOROSCOPY TIME: 1.6 minutes. Dental Laboratory Technician Apprentice film reveals normal distribution of gas throughout the GI tract. No suspicious masses or calcif ications. Renal calcification measuring 8 mm associated with the upper pole RIGHT kidney. Barium mixture traversed normally throughout the esophagus. No filling defects within the stomach. Du odenal bulb was normally distensible and pliable. No gastroesophageal reflux Very small reducible hiatal hernia was noted briefly during this examination. FL/FL upper GI w air* [id number] IMPRESSION: 1. Small reducible hiatal hernia. 2. No reflux identified.
== END 2020-03-21 10:40 | disposition home or self-care (01) ==
LOC: RAD 10:40
PROVIDERS: PCP Nurse Practitioner Family; Visit Provider Surgery
DX: K29.70 Gastritis, unspecified, without bleeding (principal); K44.9 Diaphragmatic hernia without obstruction or gangrene
CPT/HCPCS: 74246

== ENCOUNTER → 2020-03-24 15:30 | Outpatient (BNVA) | payer MEDICAID, SELFPAY | PROVIDERS: PCP Nurse Practitioner Family; Visit Provider Podiatrist Foot & Ankle Surgery | DX: Z98.890 Other specified postprocedural states (principal); M21.612 Bunion of left foot; M77.32 Calcaneal spur, left foot; M20.62 Acquired deformities of toe(s), unspecified, left foot | CPT/HCPCS: 73630 ==

== ENCOUNTER → 2020-03-31 08:23 | Outpatient (BNVA) | payer MEDICAID, SELFPAY | PROVIDERS: Visit Provider Counselor Professional | DX: F60.3 Borderline personality disorder (principal); F43.12 Post-traumatic stress disorder, chronic | CPT/HCPCS: 90834 ==

== ENCOUNTER → 2020-04-08 09:21 | Outpatient (BNVA) | payer MEDICAID, SELFPAY | PROVIDERS: PCP Nurse Practitioner Family; Visit Provider Counselor Professional | DX: F60.3 Borderline personality disorder (principal); F33.2 Major depressive disorder, recurrent severe without psychotic features; F43.12 Post-traumatic stress disorder, chronic | CPT/HCPCS: 90834 ==

== ENCOUNTER → 2020-04-13 10:05 | Outpatient (BNVA) | payer MEDICAID, SELFPAY | PROVIDERS: Visit Provider Counselor Professional | DX: F60.3 Borderline personality disorder (principal); F33.2 Major depressive disorder, recurrent severe without psychotic features; F43.12 Post-traumatic stress disorder, chronic; D48.9 Neoplasm of uncertain behavior, unspecified; L82.1 Other seborrheic keratosis; B00.9 Herpesviral infection, unspecified; L30.4 Erythema intertrigo; L70.0 Acne vulgaris; F17.210 Nicotine dependence, cigarettes, uncomplicated | CPT/HCPCS: 90834; 11102; 88304; 88305; 99203; 99204 ==

== ENCOUNTER 2020-04-14 10:36 | Outpatient (CLI) | payer MEDICAID, SELFPAY ==
--- NOTE | 2020-04-14 10:43 | XR_ITS ---
WS: [id number] Right shoulder, 2 views, 04/14/2020 Clinical Data: R ANTERIOR SHOULDER PAIN Comparison: None. Findings: No fractures or dislocations are seen. The AC joint is normal. The adjacent right clavicle, right sca pula and ribs are normal. The soft tissues are unremarkable. XR/XR shoulder RT min 2V* [id number] Impression: Negative right shoulder.
== END 2020-04-14 10:37 | disposition home or self-care (01) ==
LOC: RAD 10:39
PROVIDERS: PCP Nurse Practitioner Family; Visit Provider Nurse Practitioner Family
DX: M25.511 Pain in right shoulder (principal)
CPT/HCPCS: 73030

== ENCOUNTER → 2020-04-15 08:36 | Outpatient (BNVA) | payer MEDICAID, SELFPAY | PROVIDERS: PCP Nurse Practitioner Family; Visit Provider Psychiatry & Neurology Psychiatry | DX: F41.1 Generalized anxiety disorder (principal); F43.12 Post-traumatic stress disorder, chronic; F33.2 Major depressive disorder, recurrent severe without psychotic features; F60.3 Borderline personality disorder | CPT/HCPCS: 99213 ==

== ENCOUNTER → 2020-04-28 08:12 | Outpatient (BNVA) | payer MEDICAID, SELFPAY | PROVIDERS: Visit Provider Counselor Professional | DX: F43.12 Post-traumatic stress disorder, chronic (principal); F41.1 Generalized anxiety disorder; F33.2 Major depressive disorder, recurrent severe without psychotic features | CPT/HCPCS: 90834 ==

== ENCOUNTER → 2020-05-04 08:16 | Outpatient (BNVA) | payer MEDICAID, SELFPAY | PROVIDERS: Visit Provider Counselor Professional | DX: F60.3 Borderline personality disorder (principal); F43.12 Post-traumatic stress disorder, chronic | CPT/HCPCS: 90834; 90832 ==

== ENCOUNTER → 2020-05-12 07:54 | Outpatient (BNVA) | payer MEDICAID, SELFPAY | PROVIDERS: Visit Provider Counselor Professional | DX: F43.12 Post-traumatic stress disorder, chronic (principal); F41.1 Generalized anxiety disorder; F33.2 Major depressive disorder, recurrent severe without psychotic features | CPT/HCPCS: 90834; 90832 ==

== ENCOUNTER → 2020-05-18 09:01 | Outpatient (BNVA) | payer MEDICAID, SELFPAY | PROVIDERS: Visit Provider Counselor Professional | DX: F43.12 Post-traumatic stress disorder, chronic (principal); F60.3 Borderline personality disorder | CPT/HCPCS: 90834; 90832 ==

== ENCOUNTER → 2020-05-26 07:54 | Outpatient (BNVA) | payer MEDICAID, SELFPAY | PROVIDERS: Visit Provider Counselor Professional | DX: F60.3 Borderline personality disorder (principal); F43.12 Post-traumatic stress disorder, chronic; F33.2 Major depressive disorder, recurrent severe without psychotic features | CPT/HCPCS: 90834; 90832 ==

== ENCOUNTER → 2020-06-02 07:58 | Outpatient (BNVA) | payer MEDICAID, SELFPAY | PROVIDERS: Visit Provider Counselor Professional | DX: F60.3 Borderline personality disorder (principal); F43.12 Post-traumatic stress disorder, chronic | CPT/HCPCS: 90834; 90832 ==

== ENCOUNTER → 2020-06-06 07:57 | Outpatient (BNVA) | payer MEDICAID, SELFPAY | PROVIDERS: Visit Provider Psychiatry & Neurology Psychiatry | DX: F41.1 Generalized anxiety disorder (principal); F43.12 Post-traumatic stress disorder, chronic; F33.2 Major depressive disorder, recurrent severe without psychotic features; F60.3 Borderline personality disorder | CPT/HCPCS: 99213 ==

== ENCOUNTER → 2020-06-09 08:12 | Outpatient (BNVA) | payer MEDICAID, SELFPAY | PROVIDERS: Visit Provider Counselor Professional | DX: F43.12 Post-traumatic stress disorder, chronic (principal); F60.3 Borderline personality disorder | CPT/HCPCS: 90834; 90832 ==

== ENCOUNTER → 2020-06-16 08:41 | Outpatient (BNVA) | payer MEDICAID, SELFPAY | PROVIDERS: Visit Provider Counselor Professional | DX: F43.12 Post-traumatic stress disorder, chronic (principal); F60.3 Borderline personality disorder | CPT/HCPCS: 90834; 90832 ==

== ENCOUNTER → 2020-06-30 07:46 | Outpatient (BNVA) | payer MEDICAID, SELFPAY | PROVIDERS: Visit Provider Counselor Professional | DX: F60.3 Borderline personality disorder (principal) | CPT/HCPCS: 90834; 90832 ==

== ENCOUNTER → 2020-07-07 08:06 | Outpatient (BNVA) | payer MEDICAID, SELFPAY | PROVIDERS: Visit Provider Counselor Professional | DX: F60.3 Borderline personality disorder (principal); F43.12 Post-traumatic stress disorder, chronic; F33.2 Major depressive disorder, recurrent severe without psychotic features | CPT/HCPCS: 90834; 90832 ==

== ENCOUNTER → 2020-07-12 10:50 | Outpatient (BNVA) | payer MEDICAID, SELFPAY | PROVIDERS: Visit Provider Specialist | DX: G56.90 Unspecified mononeuropathy of unspecified upper limb (principal); R20.0 Anesthesia of skin; R20.2 Paresthesia of skin; F17.210 Nicotine dependence, cigarettes, uncomplicated | CPT/HCPCS: 95910 ==

== ENCOUNTER → 2020-07-19 07:46 | Outpatient (BNVA) | payer MEDICAID, SELFPAY | PROVIDERS: Visit Provider Psychiatry & Neurology Psychiatry | DX: F60.3 Borderline personality disorder (principal); F33.2 Major depressive disorder, recurrent severe without psychotic features; F43.12 Post-traumatic stress disorder, chronic; F41.1 Generalized anxiety disorder; F17.200 Nicotine dependence, unspecified, uncomplicated | CPT/HCPCS: 99214 ==

== ENCOUNTER → 2020-07-22 08:02 | Outpatient (BNVA) | payer MEDICAID, SELFPAY | PROVIDERS: Visit Provider Counselor Professional | DX: F43.12 Post-traumatic stress disorder, chronic (principal); F41.1 Generalized anxiety disorder; F33.2 Major depressive disorder, recurrent severe without psychotic features | CPT/HCPCS: 90834; 90832 ==

== ENCOUNTER → 2020-07-28 07:59 | Outpatient (BNVA) | payer MEDICAID, SELFPAY | PROVIDERS: Visit Provider Counselor Professional | DX: F60.3 Borderline personality disorder (principal); F33.2 Major depressive disorder, recurrent severe without psychotic features | CPT/HCPCS: 90834; 90832 ==

== ENCOUNTER → 2020-08-16 08:27 | Outpatient (BNVA) | payer MEDICAID, SELFPAY | PROVIDERS: Visit Provider Counselor Professional | DX: F60.3 Borderline personality disorder (principal); F43.12 Post-traumatic stress disorder, chronic | CPT/HCPCS: 90834; 90832 ==

== ENCOUNTER → 2020-09-01 08:59 | Outpatient (BNVA) | payer MEDICAID, SELFPAY | PROVIDERS: Visit Provider Psychiatry & Neurology Psychiatry | DX: F60.3 Borderline personality disorder (principal); F33.2 Major depressive disorder, recurrent severe without psychotic features; F43.12 Post-traumatic stress disorder, chronic; F41.1 Generalized anxiety disorder; F17.200 Nicotine dependence, unspecified, uncomplicated | CPT/HCPCS: 99213 ==

== ENCOUNTER → 2020-09-02 09:52 | Outpatient (BNVA) | payer MEDICAID, SELFPAY | PROVIDERS: Visit Provider Counselor Professional | DX: Z63.4 Disappearance and death of family member (principal); F60.3 Borderline personality disorder | CPT/HCPCS: 90834; 90832 ==

== ENCOUNTER → 2020-09-20 08:48 | Outpatient (BNVA) | payer MEDICAID, SELFPAY | PROVIDERS: Visit Provider Counselor Professional | DX: F60.3 Borderline personality disorder (principal); F33.2 Major depressive disorder, recurrent severe without psychotic features | CPT/HCPCS: 90834; 90832 ==

== ENCOUNTER → 2020-09-27 08:01 | Outpatient (BNVA) | payer MEDICAID, SELFPAY | PROVIDERS: Visit Provider Counselor Professional | DX: F60.3 Borderline personality disorder (principal); F43.12 Post-traumatic stress disorder, chronic; F33.2 Major depressive disorder, recurrent severe without psychotic features; F41.1 Generalized anxiety disorder | CPT/HCPCS: 90834; 90832 ==

== ENCOUNTER → 2020-10-20 08:45 | Outpatient (BNVA) | payer MEDICAID, SELFPAY | PROVIDERS: Visit Provider Counselor Professional | DX: Z63.4 Disappearance and death of family member (principal); F60.3 Borderline personality disorder | CPT/HCPCS: 90834; 87635; 90832 ==

== ENCOUNTER 2020-10-25 07:11 | Outpatient (CLI) | payer MEDICAID, SELFPAY ==
--- NOTE | 2020-10-25 08:10 | PFTS_ITS ---
Date of Study:10/25/20 Date of Dictation: MECHANICS: Forced vital capacity (FVC) is reduced. Forced expiratory volume in one second (FEV1) is reduced. FEV1/FVC is normal. FLOW VOLUME LOOP: Normal. LUNG VOLUMES: Not measured DIFFUSING CAPACITY FOR CARBON MONOXIDE: Not measured INTERPRETATION: The postbronchodilator spirometry is consistent with mild restriction. The prebronchodilator spirometry is consistent with moderate restriction. There is a significant postbronchodilator response. MTDD
== END 2020-10-25 07:12 | disposition home or self-care (01) ==
LOC: RT 07:12
PROVIDERS: Visit Provider Nurse Practitioner Family
DX: R06.02 Shortness of breath (principal)
CPT/HCPCS: 94060; J7611

== ENCOUNTER → 2020-11-03 07:36 | Outpatient (BNVA) | payer MEDICAID, SELFPAY | PROVIDERS: Visit Provider Counselor Professional | DX: F60.3 Borderline personality disorder (principal) | CPT/HCPCS: 90834; 90832 ==

== ENCOUNTER → 2020-12-01 09:46 | Outpatient (BNVA) | payer MEDICAID, SELFPAY | PROVIDERS: Visit Provider Counselor Professional | DX: F43.12 Post-traumatic stress disorder, chronic (principal); F60.3 Borderline personality disorder | CPT/HCPCS: 90832 ==

== ENCOUNTER → 2020-12-08 09:55 | Outpatient (BNVA) | payer MEDICAID, SELFPAY | PROVIDERS: Visit Provider Counselor Professional | DX: F60.3 Borderline personality disorder (principal) | CPT/HCPCS: 90834; 90832 ==

== ENCOUNTER → 2021-01-12 08:12 | Outpatient (BNVA) | payer MEDICAID, SELFPAY | PROVIDERS: Visit Provider Counselor Professional | DX: F43.12 Post-traumatic stress disorder, chronic (principal); F60.3 Borderline personality disorder; F41.1 Generalized anxiety disorder; F33.2 Major depressive disorder, recurrent severe without psychotic features | CPT/HCPCS: 90834 ==

== ENCOUNTER → 2021-03-20 07:10 | Outpatient (BNVA) | payer MEDICAID, SELFPAY | PROVIDERS: Visit Provider Psychiatry & Neurology Psychiatry | DX: F60.3 Borderline personality disorder (principal); F33.2 Major depressive disorder, recurrent severe without psychotic features; F43.12 Post-traumatic stress disorder, chronic; F41.1 Generalized anxiety disorder; F17.200 Nicotine dependence, unspecified, uncomplicated | CPT/HCPCS: 99214 ==

== ENCOUNTER 2021-03-22 09:59 | Outpatient (CLI) | payer MEDICAID, SELFPAY ==
--- NOTE | 2021-03-22 10:19 | MM_ITS ---
WS: [id number] BILATERAL DIGITAL SCREENING MAMMOGRAPHY WITH CAD CLINICAL INFORMATION: SCREENING HISTORY: Screening mammogram. No current complaints. COMPARISON: Outside examinations TECHNIQUE: Bilateral CC and MLO views. FINDINGS: Scattered fibroglandular densities bilaterally. Dystrophic calcifications left subareola. No suspici ous focal mass, asymmetry, calcifications, or architectural distortion. No evidence of malignancy. MM/[place] [id number] IMPRESSION: BI-RADS: 2-Benign FOLLOW UP: 1 Year Follow-up Recommend return to annual screening mammography.
== END 2021-03-22 10:00 | disposition home or self-care (01) ==
LOC: RADSHAW 10:03
PROVIDERS: PCP Nurse Practitioner Family; Visit Provider Nurse Practitioner Family
DX: Z12.31 Encounter for screening mammogram for malignant neoplasm of breast (principal)
CPT/HCPCS: 77067

== ENCOUNTER 2021-03-30 13:13 | Outpatient (CLI) | payer MEDICAID, SELFPAY ==
--- NOTE | 2021-03-30 13:22 | XR_ITS ---
WS: [id number] Left knee, 3 views, 03/30/2021 Clinical Data: LEFT KNEE PAIN Comparison: None. Findings: There is medial joint compartment narrowing with a small spur of the medial femoral condyle and media l tibial plateau. There is minimal irregularity of the posterior patella. No fractures or dislocations are seen. The so ft tissues are unremarkable. XR/XR knee LT 3V* [id number] Impression: Minimal osteoarthritic change of the left knee. Kellgren-Richar Classification: grade 2 (minimal): definite osteophytes and p ossible joint space narrowing
== END 2021-03-30 13:14 | disposition home or self-care (01) ==
LOC: RAD 13:18
PROVIDERS: PCP Nurse Practitioner Family; Visit Provider Orthopaedic Surgery
DX: M25.562 Pain in left knee (principal)
CPT/HCPCS: 73562

== ENCOUNTER 2021-04-14 16:34 | Outpatient (CLI) | payer MEDICAID, SELFPAY ==
--- NOTE | 2021-04-14 | XRR_ITS ---
PROCEDURE INFORMATION: Exam: XR Cervical Spine Exam date and time: 04/14/2021 12:00 AM Age: 46 years old Clinical indication: Neck pain; Additional info: Pain in joint TECHNIQUE: Imaging protocol: XR of the cervical spine. Views: 2 or 3 views. COMPARISON: No relevant prior studies available. FINDINGS: Bones/joints: No fractures. Reversal of curvature. No vertebral subluxation or dislocation.The cervical spine demonstrates moderate degenerative changes at multiple levels. Soft tissues: Unremarkable. XR/XR cervical spine 3V* [id number] IMPRESSION: No acute abnormalities of cervical spine.
--- NOTE | 2021-04-14 | XRR_ITS ---
PROCEDURE INFORMATION: Exam: XR Thoracic Spine Exam date and time: 04/14/2021 12:00 AM Age: 46 years old Clinical indication: Pain in thoracic spine; Additional info: Pain in joint TECHNIQUE: Imaging protocol: XR of the thoracic spine. Views: 2 views. COMPARISON: No relevant prior studies available. FINDINGS: Bones/joints: Normal. No acute fracture. Normal alignment. Soft tissues: Unremarkable. XR/XR thoracic spine 2V [id number] IMPRESSION: No acute findings.
== END 2021-04-14 16:35 | disposition home or self-care (01) ==
LOC: RAD 16:36
PROVIDERS: PCP Nurse Practitioner Family; Visit Provider Nurse Practitioner Family
DX: M25.50 Pain in unspecified joint (principal); M54.2 Cervicalgia; M54.6 Pain in thoracic spine
CPT/HCPCS: 72040; 72070

== ENCOUNTER → 2021-04-18 13:37 | Outpatient (BNVA) | payer MEDICAID, SELFPAY | PROVIDERS: PCP Nurse Practitioner Family; Visit Provider Podiatrist Foot & Ankle Surgery | DX: M77.31 Calcaneal spur, right foot (principal); M19.071 Primary osteoarthritis, right ankle and foot; M79.671 Pain in right foot | CPT/HCPCS: 73630 ==

== ENCOUNTER → 2021-05-10 15:29 | Outpatient (BNVA) | payer MEDICAID, SELFPAY | PROVIDERS: PCP Nurse Practitioner Family; Visit Provider Nurse Practitioner Women's Health | DX: B00.9 Herpesviral infection, unspecified (principal) | CPT/HCPCS: 88175 ==

== ENCOUNTER → 2021-06-08 09:56 | Outpatient (BNVA) | payer MEDICAID, SELFPAY | PROVIDERS: PCP Nurse Practitioner Family; Visit Provider Counselor Professional | DX: F60.3 Borderline personality disorder (principal); F43.12 Post-traumatic stress disorder, chronic | CPT/HCPCS: 90834 ==

== ENCOUNTER → 2021-06-09 10:12 | Outpatient (BNVA) | payer MEDICAID, SELFPAY | PROVIDERS: Visit Provider Psychiatry & Neurology Psychiatry | DX: F60.3 Borderline personality disorder (principal); F33.2 Major depressive disorder, recurrent severe without psychotic features; F43.12 Post-traumatic stress disorder, chronic; F41.1 Generalized anxiety disorder; F17.200 Nicotine dependence, unspecified, uncomplicated | CPT/HCPCS: 99214 ==

== ENCOUNTER → 2021-06-21 09:36 | Outpatient (BNVA) | payer MEDICAID, SELFPAY | PROVIDERS: Visit Provider Counselor Professional | DX: F99 Mental disorder, not otherwise specified (principal); F60.3 Borderline personality disorder; F33.1 Major depressive disorder, recurrent, moderate | CPT/HCPCS: 90834 ==

== ENCOUNTER → 2021-07-06 10:48 | Outpatient (BNVA) | payer MEDICAID, SELFPAY | PROVIDERS: Visit Provider Counselor Professional | DX: F60.3 Borderline personality disorder (principal) | CPT/HCPCS: 90837; 90834 ==

== ENCOUNTER → 2021-07-26 10:38 | Outpatient (BNVA) | payer MEDICAID, SELFPAY | PROVIDERS: Visit Provider Counselor Professional | DX: F60.3 Borderline personality disorder (principal) | CPT/HCPCS: 90834 ==

== ENCOUNTER → 2021-08-09 08:03 | Outpatient (BNVA) | payer MEDICAID, SELFPAY | PROVIDERS: Visit Provider Counselor Professional | DX: F60.3 Borderline personality disorder (principal) | CPT/HCPCS: 90837; 90834 ==

== ENCOUNTER → 2021-08-25 09:58 | Outpatient (BNVA) | payer MEDICAID, SELFPAY | PROVIDERS: Visit Provider Counselor Professional | DX: F60.3 Borderline personality disorder (principal) | CPT/HCPCS: 90837; 90834 ==

== ENCOUNTER → 2021-08-31 15:46 | Outpatient (BNVA) | payer MEDICAID, SELFPAY | PROVIDERS: Visit Provider Psychiatry & Neurology Psychiatry | DX: F60.3 Borderline personality disorder (principal); F33.2 Major depressive disorder, recurrent severe without psychotic features; F43.12 Post-traumatic stress disorder, chronic; F41.1 Generalized anxiety disorder; F17.200 Nicotine dependence, unspecified, uncomplicated | CPT/HCPCS: 99213 ==

== ENCOUNTER → 2021-09-07 09:04 | Outpatient (BNVA) | payer MEDICAID, SELFPAY | PROVIDERS: Visit Provider Counselor Professional | DX: F60.3 Borderline personality disorder (principal) | CPT/HCPCS: 90834 ==

== ENCOUNTER → 2021-09-14 09:30 | Outpatient (BNVA) | payer MEDICAID, SELFPAY | PROVIDERS: Visit Provider Counselor Professional | DX: F60.3 Borderline personality disorder (principal) | CPT/HCPCS: 90834 ==

== ENCOUNTER → 2021-09-19 13:05 | Outpatient (BNVA) | payer MEDICAID, SELFPAY | PROVIDERS: Referring Provider Nurse Practitioner Family; Visit Provider Orthopaedic Surgery | DX: M25.532 Pain in left wrist (principal) | CPT/HCPCS: 73110 ==

== ENCOUNTER → 2021-09-25 00:01 | Outpatient (BNVA) | payer MEDICAID, SELFPAY | PROVIDERS: Visit Provider Podiatrist Foot & Ankle Surgery | DX: Z20.822 Contact with and (suspected) exposure to COVID-19 (principal); M21.619 Bunion of unspecified foot | CPT/HCPCS: 87635 ==

== ENCOUNTER → 2021-10-03 13:05 | Outpatient (BNVA) | payer MEDICAID, SELFPAY | PROVIDERS: Visit Provider Orthopaedic Surgery | DX: M25.562 Pain in left knee (principal); M17.12 Unilateral primary osteoarthritis, left knee | CPT/HCPCS: 73560; 73565 ==

== ENCOUNTER → 2021-10-06 08:26 | Outpatient (BNVA) | payer MEDICAID, SELFPAY | PROVIDERS: Visit Provider Counselor Professional | DX: F60.3 Borderline personality disorder (principal) | CPT/HCPCS: 90834 ==

== ENCOUNTER → 2021-10-20 08:24 | Outpatient (BNVA) | payer MEDICAID, SELFPAY | PROVIDERS: Visit Provider Counselor Professional | DX: F60.3 Borderline personality disorder (principal) | CPT/HCPCS: 90834 ==

== ENCOUNTER → 2021-11-10 08:33 | Outpatient (BNVA) | payer MEDICAID, SELFPAY | PROVIDERS: Visit Provider Counselor Professional | DX: F60.3 Borderline personality disorder (principal) | CPT/HCPCS: 90834 ==

== ENCOUNTER 2021-11-14 11:22 | Outpatient (CLI) | payer MEDICAID, SELFPAY ==
--- NOTE | 2021-11-14 11:28 | MR_ITS ---
WS: [id number] MRI LUMBAR SPINE NONCONTRAST TECHNIQUE: Sagittal T1, T2 and STIR imaging. Axial T1 and T2 imaging. CLINICAL INFORMATION: M48.061 - Spinal stenosis, lumbar region without neurogen... COMPARISON: None. FINDINGS: Mild lumbar curve. No acute compression. Small central protrusion T11-T12 in the lower thoracic spine with mild RIGHT T11-T12 foraminal narrow ing. Small disc protrusions in the cervical spine on the machine operator hop picker imaging at C3-C4 C4-C5 C5-C6 with mild to m oderate central canal stenosis at C5-C6. L1-L2: No significant disc bulging. Moderate facet arthropathy. Foramen are patent. L2-L3: Mild disc bulging in combination with facet arthropathy and ligamentum flavum hypertrophy resu lts in severe central canal stenosis. Impingement traversing L3 nerve roots bilaterally. Mild LEFT fo raminal narrowing. L3-L4: Mild disc bulging with moderate facet arthropathy and ligamentum flavum hypertrophy. Moderate to severe central canal stenosis. Prominent dorsal epidural fat contributes to stenosis. Moderate LEF T foraminal narrowing. L4-L5: Mild disc bulging in combination with facet arthropathy and ligamentum flavum flavum hypertrop hy results in moderate central canal stenosis. Prominent dorsal epidural fat. Crowding of the cauda e quina nerve rootlets. Moderate LEFT greater than RIGHT foraminal narrowing. L5-S1: Mild disc bulging with slight effacement of ventral thecal sac. Slight contact of the traversi ng S1 nerve roots. Moderate facet arthropathy. Spinal canal and foramen are patent. Visualized pelvic bony structures: Normal. Paravertebral soft tissues: Normal. MR/MR lumbar spine wo con* [id number] IMPRESSION: 1. Mild lumbar curve. No acute compression. 2. Severe central canal stenosis L2-L3 with moderate to severe central canal s tenosis L3-L4. Moderate central canal stenosis L4-L5. Prominent dorsal epidural fat contributes to stenosis L3-L4 and L4-L5. 3. Moderate foraminal narrowing LEFT L3-L4 and bilateral L4-L5, LEFT greater t churchill RIGHT. 4. Moderate facet arthropathy and ligamentum flavum hypertrophy contributes to stenosis L2-L3 L3-L4 and L4-L5. 5. Disc osteophyte protrusions in the cervical spine with mild central canal s tenosis C4-C6. This can be further evaluated with cervical spine MRI.
== END 2021-11-14 11:23 | disposition home or self-care (01) ==
LOC: RAD 11:23
PROVIDERS: Visit Provider Orthopaedic Surgery
DX: M48.061 Spinal stenosis, lumbar region without neurogenic claudication (principal); M47.816 Spondylosis without myelopathy or radiculopathy, lumbar region; M25.78 Osteophyte, vertebrae; M48.02 Spinal stenosis, cervical region
CPT/HCPCS: 72148

== ENCOUNTER → 2021-11-23 07:31 | Outpatient (BNVA) | payer MEDICAID, SELFPAY | PROVIDERS: Visit Provider Psychiatry & Neurology Psychiatry | DX: F60.3 Borderline personality disorder (principal); F33.2 Major depressive disorder, recurrent severe without psychotic features; F43.12 Post-traumatic stress disorder, chronic; F41.1 Generalized anxiety disorder; F17.200 Nicotine dependence, unspecified, uncomplicated | CPT/HCPCS: 99213 ==

== ENCOUNTER → 2021-11-24 09:31 | Outpatient (BNVA) | payer MEDICAID, SELFPAY | PROVIDERS: Visit Provider Counselor Professional | DX: F60.3 Borderline personality disorder (principal) | CPT/HCPCS: 90834 ==

== ENCOUNTER → 2021-12-05 13:56 | Outpatient (BNVA) | payer MEDICAID, SELFPAY | PROVIDERS: Visit Provider Orthopaedic Surgery | DX: M48.062 Spinal stenosis, lumbar region with neurogenic claudication (principal) | CPT/HCPCS: 72110; 99203; 99214 ==

== ENCOUNTER → 2021-12-07 07:46 | Outpatient (BNVA) | payer MEDICAID, SELFPAY | PROVIDERS: Visit Provider Counselor Professional | DX: F60.3 Borderline personality disorder (principal) | CPT/HCPCS: 90834 ==

== ENCOUNTER → 2021-12-13 14:28 | Outpatient (BNVA) | payer MEDICAID, SELFPAY | PROVIDERS: Visit Provider Counselor Professional | DX: F60.3 Borderline personality disorder (principal) | CPT/HCPCS: 90832 ==

== ENCOUNTER → 2021-12-20 08:17 | Outpatient (BNVA) | payer MEDICAID, SELFPAY | PROVIDERS: Referring Provider Orthopaedic Surgery; Visit Provider Specialist | DX: G56.02 Carpal tunnel syndrome, left upper limb (principal); Z87.891 Personal history of nicotine dependence | CPT/HCPCS: 95886; 95908; 99202 ==

== ENCOUNTER 2021-12-20 10:25 | Outpatient (CLI) | payer MEDICAID, SELFPAY ==
--- NOTE | 2021-12-20 10:34 | XRR_ITS ---
PROCEDURE INFORMATION: Exam: XR Cervical Spine Exam date and time: 12/20/2021 10:42 AM Age: 46 years old Clinical indication: Neck pain TECHNIQUE: Imaging protocol: XR of the cervical spine. Views: 4 or 5 views. COMPARISON: CR XR cervical spine 3V* [id number] 04/14/2021 5:11 PM FINDINGS: Bones/joints: [id number] kyphosis of the mid to lower cervical spine in neutral position. Moderate to severe C5-C6 and C6-C7 disc space narrowing with productive degenerative endplate changes. Soft tissues: Unremarkable. XR/XR cervical spine 4-5V [id number] IMPRESSION: 1. [id number] kyphosis of the mid to lower cervical spine in neutral position. 2. Moderate to severe C5-C6 and C6-C7 disc space narrowing with productive degenerative endplate changes.
== END 2021-12-20 10:26 | disposition home or self-care (01) ==
LOC: RAD 10:27
PROVIDERS: Visit Provider Nurse Practitioner Family
DX: M40.292 Other kyphosis, cervical region (principal); M50.322 Other cervical disc degeneration at C5-C6 level
CPT/HCPCS: 72050

== ENCOUNTER → 2021-12-21 07:51 | Outpatient (BNVA) | payer MEDICAID, SELFPAY | PROVIDERS: Visit Provider Counselor Professional | DX: F60.3 Borderline personality disorder (principal) | CPT/HCPCS: 90834 ==

== ENCOUNTER 2022-01-03 10:39 | Day surgery (SDC) | payer MEDICAID, SELFPAY ==
[2021-12-29 09:43] VITALS: BMI 44.8
[2021-12-29 10:53] LABS: Anion Gap 10.5 (5-19); Blood Urea Nitrogen 15 mg/dL (6-20); Calcium 9.1 mg/dL (8.5-10.5); Carbon Dioxide 29 mmol/L (22-29); Chloride 103 mmol/L (98-107); Creatinine Clr Calc Pharmacy 168.0984; Glomerular Filtration Rate 107.2 mL/min (90-130); Glucose 91 mg/dL (65-115); Osmolality Calculated 286 mOsm/kg (285-295); Potassium 4.5 mmol/L (3.5-5.1); Sodium 138 mmol/L (136-145)
--- NOTE | 2021-12-29 10:54 | P.ANESASSM_ITS ---
Pre-Anesthetic Assessment Height/Weight: Height 1.73 m Weight 133.81 kg Preop Diagnosis: Abdominal pain Operation Date: 01/03/22 13:50 Proposed Procedures p Lumbar Spine Decompression L2/3,3/4,4/5,5/1 40731/[id number]/M48.062(Not Applicable) - Zachary Patterson DO Familial anesthetic complications: None Was Beta Damian taken within 24 hours: N/A Was Clonidine taken within 24 hours: N/A Social Tobacco and No alcohol Exam alert, oriented x 3 and regular rate & rhythm Airway Submandibular: within normal limits Cervical ROM: within normal limits Mallampati: Class II Dentition: chipped and loose Pulmonary Chronic Obstructive Pulmonary Disease and Sleep Apnea CV/HEM Hypertension GI Gastroesophageal Reflux Disease Metabolic Morbid Obesity Musc/skel Lower Back Pain and Osteoarthritis/DJD Neuropsych Anxiety and Depression Anesthetic Plan ASA status: 3 Anesthesia: General Medications/Allergies Home Medications Medication Instructions Recorded Confirmed Last Taken Type losartan 25 mg tablet 25 mg PO DAILY 09/01/19 12/29/21 02/24/20 History gabapentin 300 mg capsule 300 mg PO TID cap 01/08/20 12/29/21 02/23/20 History albuterol sulfate 90 mcg/actuation 2 puff INHALATION Q6H PRN 01/25/21 12/29/21 Unknown History aerosol inhaler budesonide-formoterol HFA 80 2 puff INHALATION BID 01/25/21 12/29/21 Unknown History mcg-4.5 mcg/actuation aerosol inhaler (Symbicort) valacyclovir 1 gram tablet 2,000 mg PO BID tab 05/10/21 12/29/21 Unknown History bupropion HCl 300 mg 24 hr tablet, 300 mg PO QAM #30 tab 08/31/21 12/29/21 Unknown Rx extended release (Wellbutrin XL) oxcarbazepine 150 mg tablet 150 mg PO BID #60 tab 08/31/21 12/29/21 Unknown Rx (Trileptal) paroxetine HCl 40 mg tablet 40 mg PO QAM #30 tab 08/31/21 12/29/21 Unknown Rx lorazepam 0.5 mg tablet 0.5 mg PO DAILY PRN #15 tab 12/18/21 12/29/21 Unknown Rx Allergies Allergy/AdvReac Type Severity Reaction Status Date / Time No Known Allergies Allergy Verified 12/20/21 08:20 PFSH Anesthesia Medical History Borderline personality disorder COPD (chronic obstructive pulmonary disease) Generalized anxiety disorder Hypertension Major depressive disorder, recurrent severe without psychotic features Morbid obesity No pertinent past medical history neghx: dm,thyroid,dvt/pe PCP: Dr. Friend Post-traumatic stress disorder, chronic Renal stones multiple treatment of kidney stones of the left kidney. Sleep apnea Surgical History H/O wrist surgery Left wrist surg-- ganglion cyst removal History of arthroscopy of right knee (10/05/08) With partial medial and lateral meniscectomy, Chondroplasty of patellofemoral joint. Performed by Dr. Wei at [facility] in [place], [place]. History of endometrial ablation (01/12/20) Hysteroscopy, D&C, NovaSure endometrial ablation. Performed by Dr. Barrera at [facility] in [place], [place] History of facial surgery Treatment of abscess History of lithotripsy (04/17/10) Left lithotripsy, Cystoscopy with ureterorenoscopy, ureteral stent placement. Performed by Dr. Ochoa at [facility] in [place], [place]. History of lithotripsy (03/21/09) Left kidney. Performed by Dr. Ochoa at [facility] in [place], [place]. History of lithotripsy (12/27/08) Left kidney. Performed by Dr. Ochoa at [facility] in [place], [place]. History of lithotripsy (11/22/08) Left kidney, Cystoscopy with ureteral stent. Performed by Dr. Ochoa at [facility] in [place], [place]. History of suburethral sling procedure (01/12/20) Solyx single incision suburethral sling. Performed by Dr. Barrera at [facility] in [place], [place] History of tubal ligation (06/29/09) Essure. Performed by Dr. Winchester at [facility] in [place], [place]. Predislocation syndrome of metatarsophalangeal joint of left foot surgically repaired Family History Family/Other Diabetes Paternal uncle Heart disease maternal aunt Breast cancer Maternal great aunt--dx age 36 Thyroid condition maternal aunt Ovarian cancer Maternal Aunt-- dx age 37 Unsure if ovarian or uterine Stroke Paternal Uncle Grandmother Diabetes Maternal Heart disease maternal Father Hypertension Denies family history of Colon cancer Uterine cancer Social History Smoking and tobacco status: former smoker Quit status (tobacco): has quit using tobacco Year quit tobacco: 2020 Second hand smoke exposure: No Female Reproductive History Date of last menstrual period: 12/29/19 Para: 1 Data Anesthesia : 12/29/21 10:10 BMP 12/29/21 10:10 Sodium 138 Potassium 4.5 Chloride 103 Carbon Dioxide 29 BUN 15 Creatinine 0.6 Glucose 91 Calcium 9.1 Cardiac Studies: No Data to Display
[2022-01-03] VITALS (9 sets, daily range): BP systolic 127–167; BP diastolic 88–126; PULSE 66–94; RESP 13–29; TEMP 36.6–36.9; O2SAT 91–97
--- NOTE | 2022-01-03 | SCC_ITS ---
Procedure done: 1. L5/S1 Laminectomy with partial facetectomy 2. L4/L5 Laminectomy with partial facetectomy 3. L3/4 Laminectomy with partial facetectomy 4. L2/3 Laminectomy with partial facetectomy 33.3 seconds of fluoroscopic guidance, for a cumulative dose of 47.15 mGy, was provided to Dr. Patterson by the radiology department. C-arm images of the lumbar spine were saved for the patient's permanent record. [facility]
--- NOTE | 2022-01-03 | XR_ITS ---
WS: [id number] Lumbar spine, C-arm fluoroscopy, 01/03/2022 Clinical Data: lumbar stenosis Comparison: None. Findings: Dr. Patterson Performed lumbar decompression. XR/XR lumbar spine 1V [id number] Impression: Lumbar decompression.
[2022-01-03] MEDS: sodium chloride 0.9% 1,000 ML 30 ML IV (11:10)
--- NOTE | 2022-01-03 11:24 | W.PM.OPSUD ---
Surgery/Procedure H&P Update DATE OF PROCEDURE: January 03, 2022 DATE H&P PERFORMED: 01/03/22 PREOP DIAGNOSIS: Lumbar stenosis with Neurogenic Claudication PLANNED PROCEDURE: Operation Date: 01/03/22 11:05 Proposed Procedures p Lumbar Spine Decompression L2/3,3/4,4/5,12/17 [id number]/M48.062(Not Applicable) - Zachary Patterson, DO
--- NOTE | 2022-01-03 11:26 | P.HP_ITS ---
Providers/Chief Complaint Primary Care Provider: Jayne Friend NP Chief Complaint: LUMBAR STENOSIS History of Present Illness Vicky [facility] is a 46 year old female lower back pain. Patient rates pain at 8/10 in clinic today.? Patient states that she has had nerve? burning done with Dr. Joshua 1 year ago and pain has returned. Pain does keep patient up at night. Onset: chronic Duration: years Characteristics: dull ache Severity: 8 Location: lower back Radiating symptoms: bilateral legs down the front of legs worse on left side than right. Aggravating factors: any kind of consistant movement, walking, standing, bending, twisting. Alleviating factors: bio freeze, lidocaine patches Neuro deficits:bilateral leg numbness, tingling, weakness. Prior tx: Nerve burning with Dr. Joshua Goals: open Review of Systems Const: Denies: fever(s), change in weight or fatigue Eyes: Denies: change in vision, blurry vision, blind spots, photophobia, eye discomfort, seeing flashes or other (Glaucoma) ENMT: Denies: odynophagia, hoarseness, change in hearing, tinnitus, sinus pain or other (Loss of taste/smell) Card: Denies: chest pain, palpitations, syncope or other (Calf cramps) Resp: Denies: dyspnea, non-productive cough, wheezing or hemoptysis GI: Denies: abdominal pain, nausea, heartburn, diarrhea, constipation or hematochezia : Denies: urinary frequency or urinary incontinence Musc: Denies: neck pain, muscle weakness or other (Muscle pain) Skin/Breast: Denies: rash, new lesions or breast mass Neuro: Reports: other (Sleep Apnea); Denies: headache(s), numbness in extremities, weakness in extremities, sensory changes, difficulty walking, Slurred speech present or seizure-like activity Psych: Denies: depression, irritability, memory loss, difficulty concentrating or other (Personality Changes) Endo: Denies: polyuria, polydipsia, excessive sweating or change in body appearance Sander/Lymph: Denies: easy bruising, easy bleeding or enlarged lymph nodes Medications/Allergies Home Medications Medication Instructions Recorded Confirmed Last Taken Type losartan 25 mg tablet 25 mg PO DAILY 09/01/19 01/03/22 01/02/22 07:30 History gabapentin 300 mg capsule 300 mg PO TID cap 01/08/20 01/03/22 01/02/22 07:30 History albuterol sulfate 90 mcg/actuation 2 puff INHALATION Q6H PRN 01/25/21 01/03/22 01/02/22 22:00 History aerosol inhaler budesonide-formoterol HFA 80 2 puff INHALATION BID 01/25/21 01/03/22 Unknown History mcg-4.5 mcg/actuation aerosol inhaler (Symbicort) valacyclovir 1 gram tablet 2,000 mg PO BID tab 05/10/21 12/29/21 Unknown History bupropion HCl 300 mg 24 hr tablet, 300 mg PO QAM #30 tab 08/31/21 01/03/22 01/02/22 07:30 Rx extended release (Wellbutrin XL) oxcarbazepine 150 mg tablet 150 mg PO BID #60 tab 08/31/21 01/03/22 01/02/22 07:30 Rx (Trileptal) paroxetine HCl 40 mg tablet 40 mg PO QAM #30 tab 08/31/21 01/03/22 01/02/22 07:30 Rx lorazepam 0.5 mg tablet 0.5 mg PO DAILY PRN #15 tab 12/18/21 01/03/22 12/31/21 Rx Allergies Allergy/AdvReac Type Severity Reaction Status Date / Time No Known Allergies Allergy Verified 12/20/21 08:20 PFSH Acute PFSH: Medical History Borderline personality disorder COPD (chronic obstructive pulmonary disease) Generalized anxiety disorder Hypertension Major depressive disorder, recurrent severe without psychotic features Morbid obesity No pertinent past medical history neghx: dm,thyroid,dvt/pe PCP: Dr. Friend Post-traumatic stress disorder, chronic Renal stones multiple treatment of kidney stones of the left kidney. Sleep apnea Surgical History H/O wrist surgery Left wrist surg-- ganglion cyst removal History of arthroscopy of right knee (10/05/08) With partial medial and lateral meniscectomy, Chondroplasty of patellofemoral joint. Performed by Dr. Wei at [facility] in [place], [place]. History of endometrial ablation (01/12/20) Hysteroscopy, D&C, NovaSure endometrial ablation. Performed by Dr. Barrera at [facility] in [place], [place] History of facial surgery Treatment of abscess History of lithotripsy (04/17/10) Left lithotripsy, Cystoscopy with ureterorenoscopy, ureteral stent placement. Performed by Dr. Ochoa at [facility] in [place], [place]. History of lithotripsy (03/21/09) Left kidney. Performed by Dr. Ochoa at [facility] in [place], [place]. History of lithotripsy (12/27/08) Left kidney. Performed by Dr. Ochoa at [facility] in [place], [place]. History of lithotripsy (11/22/08) Left kidney, Cystoscopy with ureteral stent. Performed by Dr. Ochoa at [facility] in [place], [place]. History of suburethral sling procedure (01/12/20) Solyx single incision suburethral sling. Performed by Dr. Barrera at [facility] in [place], [place] History of tubal ligation (06/29/09) Essure. Performed by Dr. Winchester at [facility] in [place], [place]. Predislocation syndrome of metatarsophalangeal joint of left foot surgically repaired Family History Family/Other Diabetes Paternal uncle Heart disease maternal aunt Breast cancer Maternal great aunt--dx age 36 Thyroid condition maternal aunt Ovarian cancer Maternal Aunt-- dx age 37 Unsure if ovarian or uterine Stroke Paternal Uncle Grandmother Diabetes Maternal Heart disease maternal Father Hypertension Denies family history of Colon cancer Uterine cancer Social History Smoking and tobacco status: former smoker Quit status (tobacco): has quit using tobacco Year quit tobacco: 2020 Second hand smoke exposure: No Female Reproductive History: Date of last menstrual period: 12/29/19 Para: 1 Physical Exam Narrative: CONSTITUTIONAL: The patient is a normal appearing [] in no apparent distress. GENERAL: Patient in no acute distress. CARDIAC: Regular rate and rhythm. CHEST: Normal inspiratory effort, normal respiratory rate. ABDOMEN: Soft and nontender. SKIN: Clear, warm and intact. NEURO?PSYCH: The patient is alert and oriented to person, place and time. Sensorv /SILT Motor StrengthShoulder abduction C5 5/5Wrist extension C6 5/5Elbow extension C7 5/5Hand Automotive Electrician Helper C8 5/5Finger abduction T15/5 Radial/ Ulnar/ Median n intact LowerSensory (SILT)Motor StrengthHin flexion L2/3Ant/inner thigh 5/5Hip adduction L2/3 5/5Knee extension L4 Lat thigh, 5/5Toe dorsiflexion L5 5/5Ankle dorsiflexion L5/ U53Vtpyshr flexion S1 5/5 DTRBleeps 2+Triceps 2+Brachioradialis 2+Patellar 2+Achilles 2+ MUSCULOSKELETAL: [] UPPEREXTREMITIES: The patient had full active ROM in fingers, wrist, elbow, and shoulder. The patient demonstrated ability to fully flex/ex tend/abduct/adduct fingers, make ok sign, cross 2nd/3rd digits, extend 1st digit fully.. Radial pulse 2+, CR<2 seconds. LOWER EXTREMITIES: Pt has full, active ROM of toes, ankle, knee, and hip. Dorsal is pedis/posterior tibialis pulses 2+, CR<2 seconds. SPINE: Skin warm, dry, intact. Data : 12/29/21 10:10 A&P Assessment and plan (1) Lumbar stenosis with neurogenic claudication: LUmbar decompresssion L2-S1 Status: Acute Attestations Medical Necessity Statement*: failed conservative tx Coding Level of Care Code Acute Hemmer Automatic for Chg Fwd Diagnoses Lumbar stenosis with neurogenic claudication M48.062
--- NOTE | 2022-01-03 14:40 | SUR.PHASEI ---
1423 PT TO PACU AWAKE, ALERT RESTLESS, COUGHING HOB ELEVATED, BP ELEVATED PT IS RESLTESS,W ILL NOT LAY QUIET, PT DENIES PAIN, JUST WANTS TO SIT UP AND COUGH, MONITOR SR NO ECTOPY, SATS UP TO 97% AT TIMES, PT COLUMBA K#20 TO LT HAND WITH NS 50ML UP AT DVO RATE PER GRAVITY, PT ID BRACELET TO LT HAND PT ID'D WITH 2 IDENTIFIERS. BILAT SCDS ON . 1426 PT NAUSEATED AND APPROX 30 ML THICK CLEAR SPUTUM NOTED. COOL CLOTH TO FOREHEAD, PT PLACE DON ELNC SATS HOLDING AT 94-95% , PT VERBALLY DENIES PAIN, PT MOVES ALL EXT TO COMMAND, [employer] BAB[employer]IT[employer] AT BEDSIDE, BP STILL ELEVATED SEE MED GIVEN AT BEDSIDE BY HARSH TAYLOR 1440 PT SLEEPS IF NOT DISTURBED, BP NOW 157/88 ,
--- NOTE | 2022-01-03 14:48 | P.OP_ITS ---
Operative Report Date of procedure: January 03, 2022 Pre-op diagnosis: Preop Diagnosis Lumbar stenosis with Neurogenic Claudication Post-op diagnosis: same Procedure done: 1. L5/S1 Laminectomy with partial facetectomy 2. L4/L5 Laminectomy with partial facetectomy 3. L3/4 Laminectomy with partial facetectomy 4. L2/3 Laminectomy with partial facetectomy Surgeon: Zachary Patterson Estimated blood loss (mL): 20 Procedure: 1. L5/S1 Laminectomy with partial facetectomy 2. L4/L5 Laminectomy with partial facetectomy 3. L3/4 Laminectomy with partial facetectomy 4. L2/3 Laminectomy with partial facetectomy Patient is brought to the operative suite. After undergoing anesthesia they are placed in the prone position. All areas of impingement are well padded. Patient is then prepped and draped in the normal sterile fashion. A skin incision is made over the L5/S1 level. This is confirmed under c-arm guidance. A series of dilators are passed and the tubular retractor is docked on the L5 lamina. A bovie is used to clear the soft tissue off the lamina and the L 5/S1 facet joint. A high speed adriana is then used to perform the laminectomy and take down the medial aspect of the L 5/S1 facet joint. A kerrison rongeure was then used to take down the remaining lamina and smooth the edge of the laminectomy up to the point where the ligamentum flavum attaches. Attention was then brought to the medial aspect of the facet joint. The remai wong medial aspect of the superior and inferior aspect of the facet joint were taken down with the kerrison from the pedicle of L5 to S1. The facet joint had significant hypertrophy. Attention was then brought to the Ligamentum Flavum. The ligament was taken down from the lamina of L5 to S1 and out medially to the remaining facet joint. The ligament was thick. The dura was then exposed. The dura was in good repair. The L5 nerve was then traced with a curette out the L5/S1 foramen and found to be adequately decompressed. The s1 nerve was traced with a curette around the s1 pedicle. The lateral recess was opened with a kerrison helping to further decompress the S1 nerve. Wound is then irrigated copiously with saline and surgiflo is used to stop any bleeding. The tubular retractor is removed and the wound A skin incision is made over the L4/5 level. This is confirmed under c-arm guidance. A series of dilators are passed and the tubular retractor is docked on the L4 lamina. A bovie is used to clear the soft tissue off the lamina and the L 4/5 facet joint. A high speed adriana is then used to perform the laminectomy and take down the medial aspect of the L 4/5 facet joint. A kerrison rongeure was then used to take down the remaining lamina and smooth the edge of the laminectomy up to the point where the ligamentum flavum attaches. Attention was then brought to the medial aspect of the facet joint. The remaining medial aspect of the superior and inferior aspect of the facet joint were taken down with the kerrison from the pedicle of L4 to L 5. The facet joint had significant hypertrophy. Attention was then brought to the Ligamentum Flavum. The ligament was taken down from the lamina of L4 to L5 and out medially to the remaining facet joint. The ligament was thick. The dura was then exposed. The dura was in good repair. The L4 nerve was then traced with a curette out the L4/5 foramen and found to be adequately decompressed. The L5 nerve was traced with a curette around the L5 pedicle. The lateral recess was opened with a kerrison helping to further decompress the L5 nerve. Wound is then irrigated copiously with saline and surgiflo is used to stop any bleeding. The tubular retractor is removed and the wound A skin incision is made over the L3/4 level. This is confirmed under c-arm guidance. A series of dilators are passed and the tubular retractor is docked on the L3 lamina. A bovie is used to clear the soft tissue off the lamina and the L 3/4 facet joint. A high speed adriana is then used to perform the laminectomy and take down the medial aspect of the L 3/4 facet joint. A kerrison rongeure was then used to take down the remaining lamina and smooth the edge of the laminectomy up to the point where the ligamentum flavum attaches. Attention was then brought to the medial aspect of the facet joint. The remaining medial aspect of the superior and inferior aspect of the facet joint were taken down with the kerrison from the pedicle of L3 to L 4. The facet joint had significant hypertrophy. Attention was then brought to the Ligamentum Flavum. The ligament was taken down from the lamina of L3 to L4 and out medially to the remaining facet joint. The ligament was thick. The dura was then exposed. The dura was in good repair. The L3 nerve was then traced with a curette out the L3/4 foramen and found to be adequately decompressed. The L4 nerve was traced with a curette around the L4 pedicle. The lateral recess was opened with a kerrison helping to further decompress the L4 nerve. Wound is then irrigated copiously with saline and surgiflo is used to stop any bleeding. The tubular retractor is removed and the wound A skin incision is made over the L2/3 level. This is confirmed under c-arm guidance. A series of dilators are passed and the tubular retractor is docked on the L2 lamina. A bovie is used to clear the soft tissue off the lamina and the L 2/3 facet joint. A high speed adriana is then used to perform the laminectomy and take down the medial aspect of the L 2/3 facet joint. A kerrison rongeure was then used to take down the remaining lamina and smooth the edge of the laminectomy up to the point where the ligamentum flavum attaches. Attention was then brought to the medial aspect of the facet joint. The remaining medial aspect of the superior and inferior aspect of the facet joint were taken down with the kerrison from the pedicle of L2 to L 3. The facet joint had significant hypertrophy. Attention was then brought to the Ligamentum Flavum. The ligament was taken down from the lamina of L2 to L3 and out medially to the remaining facet joint. The ligament was thick. The dura was then exposed. The dura was in good repair. The L2 nerve was then traced with a curette out the L2/3 foramen and found to be adequately decompressed. The L3 nerve was traced with a curette around the L3 pedicle. The lateral recess was opened with a kerrison helping to further decompress the L3 nerve. She did have a dural tear at the L2-3 level. This was sealed with a DuraGen patch and DuraSeal. No CSF leak after this was done. And minimal leak prior to placing this. Wound is then irrigated copiously with saline and surgiflo is used to stop any bleeding. The tubular retractor is removed and the wound is closed with vicryl and monocryl suture. Glue is then used to protect the wound. A sterile dressing is then placed. Patient was then placed in the supine position and transferred to the PACU in stable condition.
[2022-01-03] MEDS: HYDROcodone-acetaminophen 5-325 mg Tablet 2 TAB PO (15:22)
== END 2022-01-03 16:25 | disposition home or self-care (01) ==
PROVIDERS: Anesthesiology; PCP Nurse Practitioner Family; Visit Provider Orthopaedic Surgery
PROC: (CPT 63005; principal; 2022-01-03 10:55)
DX: M48.062 Spinal stenosis, lumbar region with neurogenic claudication; F60.3 Borderline personality disorder
CPT/HCPCS: 90832; 36415; 51702; 72020; 76000; 80048; J0690; J1100; J1170; J2250; J2405; J2704; J2710; J3010; J3490; J7030

== ENCOUNTER → 2022-01-17 07:49 | Outpatient (BNVA) | payer MEDICAID, SELFPAY | PROVIDERS: PCP Nurse Practitioner Family; Visit Provider Counselor Professional | DX: F60.3 Borderline personality disorder (principal); F33.2 Major depressive disorder, recurrent severe without psychotic features; F43.12 Post-traumatic stress disorder, chronic; F41.1 Generalized anxiety disorder | CPT/HCPCS: 90791 ==

== ENCOUNTER → 2022-01-18 13:07 | Outpatient (BNVA) | payer MEDICAID, SELFPAY | PROVIDERS: PCP Nurse Practitioner Family; Visit Provider Orthopaedic Surgery | DX: Z47.89 Encounter for other orthopedic aftercare (principal); Z98.890 Other specified postprocedural states | CPT/HCPCS: 99024 ==

== ENCOUNTER → 2022-01-31 06:17 | Outpatient (BNVA) | payer MEDICAID, SELFPAY | PROVIDERS: PCP Nurse Practitioner Family; Visit Provider Counselor Professional | DX: F60.3 Borderline personality disorder (principal); F33.2 Major depressive disorder, recurrent severe without psychotic features; F43.12 Post-traumatic stress disorder, chronic; F41.1 Generalized anxiety disorder | CPT/HCPCS: 90834 ==

== ENCOUNTER → 2022-02-15 07:40 | Outpatient (BNVA) | payer MEDICAID, SELFPAY | PROVIDERS: PCP Nurse Practitioner Family; Visit Provider Counselor Professional | DX: F60.3 Borderline personality disorder (principal); F33.2 Major depressive disorder, recurrent severe without psychotic features; F43.12 Post-traumatic stress disorder, chronic; F41.1 Generalized anxiety disorder; M47.812 Spondylosis without myelopathy or radiculopathy, cervical region; M54.12 Radiculopathy, cervical region; Z98.890 Other specified postprocedural states; Z47.89 Encounter for other orthopedic aftercare | CPT/HCPCS: 90834; 99024; 99213 ==

== ENCOUNTER → 2022-02-20 10:40 | Outpatient (BNVA) | payer MEDICAID, SELFPAY | PROVIDERS: PCP Nurse Practitioner Family; Visit Provider Orthopaedic Surgery | DX: M67.911 Unspecified disorder of synovium and tendon, right shoulder (principal) | CPT/HCPCS: 99213 ==

== ENCOUNTER → 2022-02-27 10:46 | Outpatient (BNVA) | payer MEDICAID, SELFPAY | PROVIDERS: PCP Nurse Practitioner Family; Visit Provider Orthopaedic Surgery | DX: G56.02 Carpal tunnel syndrome, left upper limb (principal); M25.511 Pain in right shoulder | CPT/HCPCS: 99213 ==

== ENCOUNTER 2022-03-20 08:12 | Outpatient (CLI) | payer MEDICAID, SELFPAY ==
--- NOTE | 2022-03-20 09:30 | MR_ITS ---
WS: [id number] MRI CERVICAL SPINE NONCONTRAST HISTORY: M54.12 - Radiculopathy, cervical region COMPARISON: 12/20/2021 Technique: Multiplanar, multisequence noncontrast imaging of the cervical spine. Straightening and reversal of the normal cervical lordosis. Reversal centered at the C4-5 level. C5 r etrolisthesis by 2 mm. Approximately 2 mm anterolisthesis of C3. Disc spaces are narrowed. The scales inspector ior longitudinal ligament is wavy but continuous. Increased signal in the cervical cord extends over length of 3.2 cm beginning at the superior C5 vert ebral body and extending to the superior endplate of C7. There is very minimal cord atrophy. Craniocervical junction, C1 and C2 relationship, odontoid process and soft tissues are normal. C2-C3: Shallow central disc protrusion with no stenosis. C3-C4: Central disc protrusion and osteophytosis. Disc abuts the ventral cord resulting in mild centr al stenosis. C4-C5: Mild annular disc bulging. There is mild osteophytic ridging. Disc osteophyte encroachment upo n the ventral thecal sac causing moderate central and bilateral foraminal stenosis. C5-C6: Retrolisthesis with broad-based disc bulging and osteophytosis results in moderate central and bilateral foraminal stenosis. Larger disc osteophyte encroaching into the LEFT foramen. C6-C7: Central disc protrusion and osteophytosis. Encroachment upon the ventral cervical cord resulti ng in severe central and bilateral foraminal stenosis. C7-T1: Central disc protrusion without cord contact. There are smaller central disc protrusions at T2-3 and T3-4 without cord contact. Paraspinal soft tissue are normal. MR/MR cervical spin wo con* [id number] IMPRESSION: 1. Advanced degenerative disc disease with reversal of the normal cervical luis dosis centered at C4-5. 2. Central cord myelomalacia extends over length of 3.2 cm beginning at the benitez perior endplate of C5 through the superior endplate of C7. 3. Multilevel areas of significant central and foraminal stenosis. Stenoses du e to combination of disc protrusions, reversal of the normal cervical lordosis and osteophytes. 4. Moderate central and bilateral foraminal stenosis at C4-5 and C5-6. 5. Severe central and bilateral foraminal stenosis at C6-7. 6. Small central disc protrusions at C2-3, C3-4 and C7-T1. 7. Very mild central stenosis at C3-4.
== END 2022-03-20 08:13 | disposition home or self-care (01) ==
PROVIDERS: PCP Nurse Practitioner Family; Visit Provider Orthopaedic Surgery
DX: M54.12 Radiculopathy, cervical region (principal); M50.321 Other cervical disc degeneration at C4-C5 level; G95.89 Other specified diseases of spinal cord; M50.21 Other cervical disc displacement, high cervical region; M48.02 Spinal stenosis, cervical region
CPT/HCPCS: 72141

== ENCOUNTER 2022-03-20 08:13 | Outpatient (CLI) | payer MEDICAID, SELFPAY ==
--- NOTE | 2022-03-20 08:45 | MR_ITS ---
WS: [id number] MRI RIGHT SHOULDER HISTORY: pain COMPARISON: None available. TECHNIQUE: Multiplanar sequences of the shoulder joint are submitted. Mild AC joint arthritis with encroachment upon the myotendinous insertion of the supraspinatus tendon . There is deformity of the muscle by the AC joint arthritis. No fluid at the AC joint. Small amount of fluid in the subacromial subdeltoid bursa. 5 mm osteophyte distal undersurface of the acromion wit h mild subacromial impingement. No os acromion. Biceps tendon in the bicipital groove. 6 mm insertion site tear of the anterior supraspinatus muscle. No retraction. There is additional sig nificant fraying and increased signal extending more proximally along the supraspinatus tendon from t endinopathy. Seen only on one image is a thin linear area of increased signal extending through the s upraspinatus tendon. Within the fluid along the supraspinatus tendon is a 5 mm well-circumscribed low signal loose body. This loose body projects within the fluid between the infraspinatus and supraspin atus muscle bodies. No definite subscapularis tendon tear is identified although there is a small traci unt of fluid in this subscapularis recess. No muscle atrophy or edema. Subchondral cystic changes in the humeral head. The largest measures 13 x 11 mm. This may be the site of the loose body donation. No definite labral tears. There is significa nt motion artifact due to patient's discomfort. MR/MR shoulder RT wo con* [id number] IMPRESSION: 1. Quality is compromised by patient discomfort and movement during the examin ation. 2. Insertion site tear supraspinatus, 6 mm. 3. Significant fraying of the supraspinatus tendon with fluid extending along the tendon sheath. Within the tendon sheath there is at least one and possibly 2 loose bodies. The largest measures 5 mm. This loose body is best seen between the muscle bellies of the infraspinatus and supraspinatus. 4. Additional tendinopathy in the supraspinatus. 5. Subchondral cystic changes in the humeral head. This may be the site of the loose body donation.
== END 2022-03-20 08:14 | disposition home or self-care (01) ==
PROVIDERS: PCP Nurse Practitioner Family; Visit Provider Orthopaedic Surgery
DX: M67.911 Unspecified disorder of synovium and tendon, right shoulder (principal); M75.101 Unspecified rotator cuff tear or rupture of right shoulder, not specified as traumatic
CPT/HCPCS: 73221

== ENCOUNTER → 2022-04-10 13:42 | Outpatient (BNVA) | payer MEDICAID, SELFPAY | PROVIDERS: PCP Nurse Practitioner Family; Visit Provider Orthopaedic Surgery | DX: M75.101 Unspecified rotator cuff tear or rupture of right shoulder, not specified as traumatic (principal) | CPT/HCPCS: 99213 ==

== ENCOUNTER → 2022-04-12 08:10 | Outpatient (BNVA) | payer MEDICAID, SELFPAY | PROVIDERS: PCP Nurse Practitioner Family; Visit Provider Orthopaedic Surgery | DX: M47.12 Other spondylosis with myelopathy, cervical region (principal) | CPT/HCPCS: 99214 ==

== ENCOUNTER 2022-04-27 06:00 | Day surgery (SDC) | payer MEDICAID, SELFPAY ==
[2022-04-24 09:03] VITALS: BMI 50.6
--- NOTE | 2022-04-24 09:12 | P.ANESASSM_ITS ---
Pre-Anesthetic Assessment Height/Weight: Height 1.63 m Weight 133.81 kg Preop Diagnosis: Cervical spondylosis with myelopathy Operation Date: 04/27/22 10:20 Proposed Procedures p Anterior Cervical Discectomy & Fusion C2 [id number]/M47.12(Not Applicable) - Zachary Patterson, Familial anesthetic complications: none Social Tobacco Exam alert, oriented x 3, clear to auscultation bilaterally and regular rate & rhythm Airway Mallampati: Class III Dentition: false (top) Pulmonary Chronic Obstructive Pulmonary Disease and Sleep Apnea CV/HEM Hypertension GI Gastroesophageal Reflux Disease and Hiatal Hernia Metabolic Morbid Obesity Neuropsych Anxiety and Neuropathy Anesthetic Plan ASA status: 3 Anesthesia: General Risk of > 500 ml blood loss (7ml/kg in children): No Medications/Allergies Home Medications Medication Instructions Recorded Confirmed Last Taken Type losartan 25 mg tablet 25 mg PO DAILY 09/01/19 04/24/22 01/02/22 07:30 History gabapentin 300 mg capsule 300 mg PO TID 01/08/20 04/24/22 01/02/22 07:30 History albuterol sulfate 90 mcg/actuation 2 puff inhalation Q6H PRN 01/25/21 04/24/22 01/02/22 22:00 History aerosol inhaler Shortness Of Breath budesonide-formoterol HFA 80 2 puff inhalation BID 01/25/21 04/24/22 Unknown History mcg-4.5 mcg/actuation aerosol inhaler (Symbicort) lorazepam 0.5 mg tablet 0.5 mg PO DAILY PRN anxiety #15 12/18/21 04/24/22 12/31/21 Rx tabs diclofenac sodium 1 % topical gel 4 g topical QID #100 grams 01/18/22 04/24/22 Unknown Rx (Voltaren Arthritis Pain) bupropion HCl 300 mg 24 hr tablet, 300 mg PO QAM #30 tabs 04/02/22 04/24/22 Unknown Rx extended release (Wellbutrin XL) oxcarbazepine 150 mg tablet 150 mg PO BID #60 tabs 04/02/22 04/24/22 Unknown Rx (Trileptal) paroxetine HCl 40 mg tablet 40 mg PO QAM #30 tabs 04/02/22 04/24/22 Unknown Rx estradiol 0.5 mg tablet 0.5 mg PO DAILY #30 tabs 04/10/22 04/24/22 Unknown Rx fluconazole 200 mg tablet 200 mg PO .every 3 days #5 tabs 04/10/22 04/24/22 Unknown Rx (Diflucan) medroxyprogesterone 2.5 mg tablet 2.5 mg PO DAILY #30 tabs 04/10/22 04/24/22 Unknown Rx (Provera) nystatin 100,000 unit/gram topical 1 applic topical QID PRN skin 04/10/22 04/24/22 Unknown Rx powder yeast #60 grams spironolactone 100 mg tablet 200 mg PO DAILY #60 tabs 04/10/22 04/24/22 Unknown Rx valacyclovir 1 gram tablet 2,000 mg PO BID PRN Cold Sores 04/10/22 04/24/22 Unknown History Allergies Allergy/AdvReac Type Severity Reaction Status Date / Time No Known Allergies Allergy Verified 04/24/22 08:40 PFS Anesthesia Medical History Borderline personality disorder COPD (chronic obstructive pulmonary disease) Generalized anxiety disorder Hypertension Major depressive disorder, recurrent severe without psychotic features Morbid obesity No pertinent past medical history neghx: dm,thyroid,dvt/pe PCP: Dr. Friend Post-traumatic stress disorder, chronic Renal stones multiple treatment of kidney stones of the left kidney. Sleep apnea Surgical History H/O wrist surgery Left wrist surg-- ganglion cyst removal History of arthroscopy of right knee (10/05/08) With partial medial and lateral meniscectomy, Chondroplasty of patellofemoral joint. Performed by Dr. Wei at [facility] [place] in [place]. History of back surgery (~12/2021) Dr. Mcgregor History of endometrial ablation (01/12/20) Hysteroscopy, D&C, NovaSure endometrial ablation. Performed by Dr. Barrera at [facility] [place] in [place] History of facial surgery Treatment of abscess History of lithotripsy (04/17/10) Left lithotripsy, Cystoscopy with ureterorenoscopy, ureteral stent placement. Performed by Dr. Ochoa at [facility] [place] in [place]. History of lithotripsy (03/21/09) Left kidney. Performed by Dr. Ochoa at [facility] in [place]. History of lithotripsy (12/27/08) Left kidney. Performed by Dr. Ochoa at [facility] in [place]. History of lithotripsy (11/22/08) Left kidney, Cystoscopy with ureteral stent. Performed by Dr. Ochoa at [facility] in [place]. History of suburethral sling procedure (01/12/20) Solyx single incision suburethral sling. Performed by Dr. Barrera at [facility] in [place] History of tubal ligation (06/29/09) Essure. Performed by Dr. Winchester at [facility] in [place]. Hx of carpal tunnel repair (~2019) R hand Predislocation syndrome of metatarsophalangeal joint of left foot surgically repaired Family History Family/Other Diabetes Paternal uncle Heart disease maternal aunt Breast cancer Maternal great aunt--dx age 36 Thyroid condition maternal aunt Ovarian cancer Maternal Aunt-- dx age 37 Unsure if ovarian or uterine Stroke Paternal Uncle Grandmother Diabetes Maternal Heart disease maternal Father Hypertension Denies family history of Colon cancer Uterine cancer Social History Smoking and tobacco status: former smoker Smoking risk assessment/counseling performed?: No Alcohol intake: never Last substance use date: 04/02/22 Female Reproductive History Date of last menstrual period: 12/29/19 Para: 1 Spontaneous abortions: No Data Anesthesia : 04/24/22 09:00 Cardiac Studies: No Data to Display
[2022-04-24 09:55] LABS: Anion Gap 13.7 (5-19); Blood Urea Nitrogen 12 mg/dL (6-20); Calcium 9.4 mg/dL (8.5-10.5); Carbon Dioxide 29 mmol/L (22-29); Chloride 101 mmol/L (98-107); Glomerular Filtration Rate 106.7 mL/min (90-130); Glucose 150 mg/dL (65-115); Osmolality Calculated 291 mOsm/kg (285-295); Potassium 4.7 mmol/L (3.5-5.1); Sodium 139 mmol/L (136-145)
[2022-04-27] VITALS (9 sets, daily range): BP systolic 136–165; BP diastolic 83–111; PULSE 80–95; RESP 14–20; TEMP 36.1–37.2; O2SAT 90–96
--- NOTE | 2022-04-27 | XR_ITS ---
WS: [id number] INTRAOPERATIVE TECHNIQUE: 2 Spot fluoroscopic images for intraoperative purposes. FLUOROSCOPY TIME: 10.3 seconds CLINICAL INFORMATION: ACDF C5-6 C6-7 COMPARISON: December 20, 2021 FINDINGS: Intraoperative changes ACDF C5-C7. Endotracheal tube with tip above the mihai. XR/XR cervical spine 1V [id number] IMPRESSION: Images obtained for intraoperative purposes.
--- NOTE | 2022-04-27 | SCC_ITS ---
Procedure done: 1. Anterior diskectomy C5/6 2. Anterior discectomy C6/7 3. Insertion of cage C5/6 4. Insertion of Cage C6/7 5. Instrumentation with anterior plate from C5-C7 6. Use of allograft 12.5 seconds of fluoroscopic guidance, for a cumulative dose of 1.12 mGy, was provided to Dr. Patterson by the radiology department. C-arm images of the cervical spine were saved for the patient's permanent record. JAUND
[2022-04-27] MEDS: sodium chloride 0.9% 1,000 ML 30 ML IV (06:24)
--- NOTE | 2022-04-27 06:34 | W.PM.OPSUD ---
Surgery/Procedure H&P Update DATE OF PROCEDURE: April 27, 2022 DATE H&P PERFORMED: 04/12/22 H&P UPDATE INFORMATION: I have reviewed H&P completed within last 30 days, I have examined patient prior to procedure and No changes to prior documentation PREOP DIAGNOSIS: Lumbar stenosis with Neurogenic Claudication PLANNED PROCEDURE: Operation Date: 04/27/22 07:00 Proposed Procedures p Anterior Cervical Discectomy & Fusion C2 [id number]/M47.12(Not Applicable) - Zachary Patterson DO
[2022-04-27] MEDS: ceFAZolin 2,000 MG in sodium chloride 0.9% (plus) 50 ML 100 MG IV (07:00)
--- NOTE | 2022-04-27 07:06 | P.ANESUD_ITS ---
Pre-Anesthetic Update Pre-Anesthetic Assessment: Date of Surgery/Procedure: 04/27/22 Preop Johanna gnosis: Lumbar stenosis with Neurogenic Claudication Proposed Procedure: Operation Date: 04/27/22 07:00 Proposed Procedures p Anterior Cervical Discectomy & Fusion C2 [id number]/M47.12(Not Applicable) - Zachary Patterson, DO Any changes to Pre-Anesthetic Assessment?: No Last Intake: Intake Last Liquid Date 04/26/22 Last Liquid Time 21:00 Last Solid Date 04/26/22 Last Solid Time 19:00 Vitals: Temperature 98.9 F 04/27/22 06:18 Temperature Source Temporal Artery S can 04/27/22 06:18 Pulse Rate 81 04/27/22 06:18 Respiratory Rate 16 04/27/22 06:18 Blood Pressure 165/111 04/27/22 06:18 Blood Pressure Gloria n 129 04/27/22 06:18 Pulse Oximetry 96 04/27/22 06:18 Oxygen Delivery Me thod 04/27/22 06:18 Exam: Pre-Anes Outpt Exam: alert, oriented x 3, clear to auscultation bilaterally and regular rate & rhythm Cardiac Studies: No Data to Display
--- NOTE | 2022-04-27 09:15 | P.OP_ITS ---
Operative Report Date of procedure: April 27, 2022 Pre-op diagnosis: Preop Diagnosis cervical spondylosis with myelopathy Post-op diagnosis: same Procedure done: 1. Anterior diskectomy C5/6 2. Anterior discectomy C6/7 3. Insertion of cage C5/6 4. Insertion of Cage C6/7 5. Instrumentation with anterior plate from C5-C7 6. Use of allograft Surgeon: Zachary Patterson Distribution Engineering Technologist: Keo Clemens Distribution Engineering Technologist: The surgical sales representative, Keo Clemens, PAC was needed for his expertise under the microscope. He was important and necessary throughout the procedure to complete in a safe and timely manner. He assisted with patient positioning prepping and draping tissue retraction suctioning of the operative field protection of the dural sac and tissue closure Estimated blood loss (mL): 20 Procedure: 1. Anterior diskectomy C5/6 2. Anterior discectomy C6/7 3. Insertion of cage C5/6 4. Insertion of Cage C6/7 5. Instrumentation with anterior plate from C5-C7 6. Use of allograft The patient was taken to the operating room, where he underwent general endotracheal anesthesia without complications. He was then positioned supine on the operating table, and all areas of impingement were well padded. The arms were carefully padded and tucked at his sides. A roll was placed between the shoulder blades.. An x-ray was done to determine the appropriate level for the skin incision. The entire neck was then sterilely prepped and draped in the usual fashion. Neuromonitoring was attached prior to prepping. A transverse skin incision was made and carried down to the platysma muscle. Th is was then split in line with its fibers. Blunt dissection was carried down medial to the carotid sheath and lateral to the trachea and esophagus until the anterior cervical spine was visualized. A needle was placed into a disc and an x-ray was done to determine its location. The longus colli muscles were then elevated bilaterally with the electrocautery unit. Self-retaining retractors were placed deep to the longus colli muscle. Attention was brought to the C6/7 level that was confirmed on x-ray. A caspar pin was placed into the C6 vertebrae and the C7 vertebrae. The disk space was then distracted. The microscope was then brought in. A radical anterior discectomies were performed at C6/7. This included complete removal of the anterior annulus, nucleus, and posterior annulus. The posterior longitudinal ligament was removed as were the posterior osteophytes. Foraminotomies were then accomplished bilaterally. This was done using a high speed adriana, kerrison rongeurs and curretes Once all of this was accomplished, the curved currette was used to check for any residual compression. The central canal was wide open as were the foramen. A high-speed bur was used to remove the cartilaginous endplates above and below the interspace. Bleeding cancellous bone was exposed. The disc space were measured and appropriate size cage were placed sterilely onto the field. Allograft graft was packed into the cages. The cage was then placed and there was good juxtaposition against the bleeding decorticated surfaces and good distraction of each interspace. Attention was brought to the next interspace. The [place] pins were removed. Bone wax was used to prevent any bleeding from occurring at the pin sites. Attention was brought to the C5/6 level that was confirmed on x-ray. A caspar pi n was placed into the C5 vertebrae and the C6 vertebrae. The disk space was then distracted. The microscope was then brought in. A radical anterior discectomies were performed at C5/6. This included complete removal of the anterior annulus, nucleus, and posterior annulus. The posterior longitudinal ligament was removed as were the posterior osteophytes. Foraminotomies were then accomplished bilaterally. This was done using a high speed adriana, kerrison rongeurs and curretes Once all of this was accomplished, the curved currette was used to check for any residual compression. The central canal was wide open as were the foramen. A high-speed bur was used to remove the cartilaginous endplates above and below the interspace. Bleeding cancellous bone was exposed. The disc space were measured and appropriate size cage were placed sterilely onto the field. Allograft graft was packed into the cages. The cage was then placed and there was good juxtaposition against the bleeding decorticated surfaces and good distraction of each interspace. Attention was brought to the next interspace. The [place] pins were removed. Bone wax was used to prevent any bleeding from occurring at the pin sites. The appropriate size anterior cervical locking plate was chosen and bent into gentle lordosis. Two screws were then placed into each of the vertebral bodies at C5, C6, and C7. There was excellent purchase. A final x-ray was done confirming good position of the hardware and Cages. The locking screws were then applied, also with excellent purchase. Following a final copious irrigation, there was good hemostasis and no dural leaks. The carotid pulse was strong. The wounds were then closed in layers using 2-0 Vicryl suture for the platysma muscle, 2-0 Vicryl suture for the subcutaneous tissue, and 4-0 monocryl suture in a subcuticular skin closure. Glue was placed followed by application of a sterile dressing. The patient was then carefully returned to the supine position on his hospital bed where he was reversed and extubated and taken to the recovery room having tolerated the procedure well.
[2022-04-27] MEDS: fentaNYL 50 mcg/mL INJ 2mL IVP (09:25)
[2022-04-27] MEDS: HYDROcodone-acetaminophen 5-325 mg Tablet 1 TAB PO (10:04)
--- NOTE | 2022-04-27 14:54 | ANE.PACU2 ---
Inpatient post-anesthesia follow up: Airway intact: Yes Vital signs: Temperature 97.9 F Pulse Rate 80 Respiratory Rate 17 Blood Pressure 158/92 Pulse Oximetry 95 Oxygen Delivery Me thod Room Air Oxygen Flow Rate 10 Fraction of Inspir ed Oxygen Hydration adequate: Yes Nausea and vomiting: No Pain level: 4 Mental status: Baseline
== END 2022-04-27 11:15 | disposition home or self-care (01) ==
PROVIDERS: Anesthesiology; PCP Family Medicine; Visit Provider Orthopaedic Surgery
PROC: 0RB30ZZ Excision of Cervical Vertebral Disc, Open Approach (ICD-10-PCS; CPT 22551; principal; 2022-04-27 07:00)
DX: M47.12 Other spondylosis with myelopathy, cervical region (principal); J44.9 Chronic obstructive pulmonary disease, unspecified; G47.30 Sleep apnea, unspecified; I10 Essential (primary) hypertension; K21.9 Gastro-esophageal reflux disease without esophagitis; E66.01 Morbid (severe) obesity due to excess calories; Z68.43 Body mass index [BMI] 50.0-59.9, adult; F41.9 Anxiety disorder, unspecified; F32.A Depression, unspecified; Z87.891 Personal history of nicotine dependence
CPT/HCPCS: 20930; 22551; 22552; 22845; 22853 ×2; 36415; 51702; 72020; 76000; 80048; C1713; C9359; J0330; J1100; J1170; J1200; J2250; J2370; J2405; J2704; J3010; J3490; J7030

== ENCOUNTER → 2022-05-10 11:26 | Outpatient (BNVA) | payer MEDICAID, SELFPAY | PROVIDERS: PCP Family Medicine; Visit Provider Physician Assistant | DX: Z47.89 Encounter for other orthopedic aftercare (principal); Z98.1 Arthrodesis status | CPT/HCPCS: 72040; 80048; 99024 ==

== ENCOUNTER → 2022-05-11 09:08 | Outpatient (BNVA) | payer MEDICAID, SELFPAY | PROVIDERS: PCP Family Medicine; Visit Provider Specialist | DX: M47.12 Other spondylosis with myelopathy, cervical region (principal); G56.03 Carpal tunnel syndrome, bilateral upper limbs; E66.01 Morbid (severe) obesity due to excess calories; Z68.41 Body mass index [BMI] 40.0-44.9, adult | CPT/HCPCS: 99214 ==

== ENCOUNTER → 2022-06-25 10:26 | Outpatient (BNVA) | payer MEDICAID, SELFPAY | PROVIDERS: PCP Family Medicine; Visit Provider Nurse Practitioner Women's Health | DX: N95.1 Menopausal and female climacteric states (principal); E87.5 Hyperkalemia | CPT/HCPCS: 80048 ==

== ENCOUNTER → 2022-07-05 10:07 | Outpatient (BNVA) | payer MEDICAID, SELFPAY | PROVIDERS: PCP Family Medicine; Visit Provider Physician Assistant | DX: Z47.89 Encounter for other orthopedic aftercare (principal); Z98.1 Arthrodesis status | CPT/HCPCS: 72040; 99024; 99213 ==

== ENCOUNTER → 2022-08-21 09:33 | Outpatient (BNVA) | payer MEDICAID, SELFPAY | PROVIDERS: PCP Family Medicine; Visit Provider Nurse Practitioner Family | DX: M65.341 Trigger finger, right ring finger (principal); R20.2 Paresthesia of skin | CPT/HCPCS: 73130; 99214 ==

== ENCOUNTER 2022-08-28 01:00 | Outpatient (CLI) | payer MEDICAID, SELFPAY | END 2022-08-28 23:00 | disposition home or self-care (01) | LOC: RAD 09-18 19:00 | PROVIDERS: PCP Family Medicine; Visit Provider Family Medicine | DX: Z98.1 Arthrodesis status (principal); M48.062 Spinal stenosis, lumbar region with neurogenic claudication | CPT/HCPCS: G0463 ==

== ENCOUNTER → 2022-09-05 13:35 | Outpatient (BNVA) | payer MEDICAID, SELFPAY | PROVIDERS: PCP Family Medicine; Visit Provider Specialist | DX: M47.12 Other spondylosis with myelopathy, cervical region (principal); M48.062 Spinal stenosis, lumbar region with neurogenic claudication; E66.01 Morbid (severe) obesity due to excess calories; F33.2 Major depressive disorder, recurrent severe without psychotic features; G56.02 Carpal tunnel syndrome, left upper limb; Z68.42 Body mass index [BMI] 45.0-49.9, adult; Z98.890 Other specified postprocedural states | CPT/HCPCS: 99214 ==

== ENCOUNTER → 2022-09-06 15:39 | Outpatient (BNVA) | payer MEDICAID, SELFPAY | PROVIDERS: PCP Family Medicine; Visit Provider Family Medicine | DX: G47.33 Obstructive sleep apnea (adult) (pediatric) (principal); E66.01 Morbid (severe) obesity due to excess calories; I10 Essential (primary) hypertension; J44.9 Chronic obstructive pulmonary disease, unspecified | CPT/HCPCS: 80053; 80061; 83036; 84443; 85025 ==

== ENCOUNTER → 2022-09-25 08:38 | Outpatient (BNVA) | payer MEDICAID, SELFPAY | PROVIDERS: PCP Family Medicine; Visit Provider Orthopaedic Surgery | DX: M75.101 Unspecified rotator cuff tear or rupture of right shoulder, not specified as traumatic (principal) | CPT/HCPCS: 99213 ==

== ENCOUNTER → 2022-09-27 09:57 | Outpatient (BNVA) | payer MEDICAID, SELFPAY | PROVIDERS: PCP Family Medicine; Visit Provider Physician Assistant | DX: M51.36 Other intervertebral disc degeneration, lumbar region (principal); M47.26 Other spondylosis with radiculopathy, lumbar region; M16.9 Osteoarthritis of hip, unspecified; M53.3 Sacrococcygeal disorders, not elsewhere classified | CPT/HCPCS: 72100; 72170; 72220; 99213 ==

== ENCOUNTER → 2022-10-01 10:49 | Outpatient (BNVA) | payer MEDICAID, SELFPAY | PROVIDERS: PCP Family Medicine; Referring Provider Nurse Practitioner Family; Visit Provider Specialist | DX: G56.03 Carpal tunnel syndrome, bilateral upper limbs (principal) | CPT/HCPCS: 95908; 95909 ==

== ENCOUNTER 2022-11-16 09:46 | Emergency (ER) | payer MEDICAID, SELFPAY ==
--- NOTE | 2022-11-16 09:54 | USCV_ITS ---
[facility] Age: 47 Gender: F : 1975 Exam Date: 11/16/2022 10:57 Ordering Phys: Fernandez Gonzalez Technologist: NASH Exam Location: [facility] [place] Indication: swelling rt lower extremity FINDINGS: No there is no evidence of acute right lower extremity deep venous thrombosis. Rt bakers cyst CONCLUSIONS No evidence of right lower extremity DVT. Right popliteal cyst measuring 5.8 x 1.8 x 4.6cm Nigel Duncan MD (Electronically Signed) Final Date: 16 November 2022 16:03 S
[2022-11-16 10:12] VITALS: BP 132/92; PULSE 78; RESP 15; O2SAT 97
[2022-11-16 12:28] VITALS: BP 130/88; PULSE 76; RESP 16; O2SAT 98
--- NOTE | 2022-11-16 12:29 | XR_ITS ---
WS: [id number] Exam: XR chest 1V portable [id number] Date/Time of Exam: 11/16/2022 12:37 PM Reason For Exam: cp Comparison 01/22/2020. The lungs are fully inflated and clear. Normal cardiomediastinal silhouette. No pleural effusions. Fu kin hardware seen in the lower C-spine. Bony structures are intact. XR/XR chest 1V portable [id number] IMPRESSION: 1. No acute cardiopulmonary finding.
[2022-11-16 12:39] LABS: Basophils # 0.1 10^3/uL (0.0-0.1); Basophils % 0.8 %; Eosinophils # 0.1 10^3/uL (0.0-0.8); Eosinophils % 2.2 %; Hematocrit 49.8 % (37.0-47.0); Hemoglobin 16.9 g/dL (11.5-15.3); Lymphocytes # 2.2 10^3/uL (0.8-4.8); Mean Corpuscular HGB Conc 33.9 g/dL (30.0-36.0); Mean Corpuscular Hemoglobin 31.9 pg (28.0-34.0); Mean Platelet Volume 9.7 fL (7.4-10.4); Monocytes # 0.4 10^3/uL (0.2-0.9); Neutrophils # 3.46 10^3/uL (1.8-7.7); Neutrophils % 54.8 %; Nucleated Red Blood Cells % 0 %; Platelet Count 290 10^3/cmm (130-400); Red Cell Distribution Width 12.7 % (12.1-15.1); White Blood Count 6.3 10^3/uL (4.0-10.0)
--- NOTE | 2022-11-16 12:39 | ECG_ITS ---
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 Measurements Intervals [place] Rate: 71 P: 46 AK: 124 QRS: 90 QRSD: 70 T: 68 QT: 371 QTc: 405 Interpretive Statements SINUS RHYTHM LOW QRS VOLTAGE IN PRECORDIAL LEADS [QRS DEFLECTION < 1.0 mV IN CHEST LEADS] SEPTAL MYOCARDIAL INFARCTION , PROBABLY OLD [40+ ms Q WAVE IN V1/V2] No previous ECG available for comparison Electronically Signed On 11-16-2022 15:53:01 CDT by Richard Schmidt M.D. [email or web address]
--- NOTE | 2022-11-16 12:40 | W.ED.EXTPRO ---
HPI - Extremity Problem General: Chief complaint: Extremity Problem,Nontraumatic Stated complaint: Oliver sent;R leg swelling Time Seen by Provider: 11/16/22 12:06 History of Present Illness: Patient is a 47-year-old female comes to the ED with right leg swelling and pain. Patient has past medical history of COPD and hypertension. Patient was sent here by Dr. Wise for ultrasound to check for blood clot on right lower extremity. Patient was recently diagnosed with right lower extremity cellulitis and finished taking her last dose of antibiotic today. The redness has improved along with some of the swelling in right lower leg as well. She still having some swelling and pain in right lower leg, so she was sent here to the ED for an ultrasound to check for DVT. Patient also complaining of having on and off sharp chest pain in the middle of her chest that is been going on now for over a month. Pain occurs while at rest or when she is up ambulating. Denies any worsening or improving factors. Associated symptoms: Reports chest pain; Deny fever(s) or rash Review of Systems Const: Denies: fever(s), chills or fatigue Eyes: Denies: change in vision or eye discomfort ENMT: Denies: throat pain, odynophagia, nasal discharge or nasal congestion Card: Reports: chest pain; Denies: palpitations, edema, swelling of feet/ankles, dyspnea on exertion or orthopnea Resp: Denies: dyspnea, productive cough or non-productive cough GI: Denies: abdominal pain, nausea, vomiting, diarrhea, constipation or hematochezia : Denies: flank pain, dysuria or hematuria Musc: Reports: extremity pain (Right lower leg) and extremity swelling (Right lower leg); Denies: neck pain or back pain Skin/Breast: Denies: rash or new lesions Neuro: Denies: headache(s), numbness in extremities or weakness in extremities PFS ED PFSH: Medical History Borderline personality disorder COPD (chronic obstructive pulmonary disease) Generalized anxiety disorder Hypertension Major depressive disorder, recurrent severe without psychotic features Morbid obesity No pertinent past medical history neghx: dm,thyroid,dvt/pe PCP: Dr. Friend Post-traumatic stress disorder, chronic Renal stones multiple treatment of kidney stones of the left kidney. Sleep apnea Surgical History H/O wrist surgery Left wrist surg-- ganglion cyst removal History of arthroscopy of right knee (10/05/08) With partial medial and lateral meniscectomy, Chondroplasty of patellofemoral joint. Performed by Dr. Wei at [facility] in [place], [place]. History of back surgery (~12/2021) Dr. Mcgregor History of endometrial ablation (01/12/20) Hysteroscopy, D&C, NovaSure endometrial ablation. Performed by Dr. Barrera at [facility] in [place] History of facial surgery Treatment of abscess History of lithotripsy (04/17/10) Left lithotripsy, Cystoscopy with ureterorenoscopy, ureteral stent placement. Performed by Dr. Ochoa at [facility] in [place]. History of lithotripsy (03/21/09) Left kidney. Performed by Dr. Ochoa at [facility] in [place]. History of lithotripsy (12/27/08) Left kidney. Performed by Dr. Ochoa at [facility] in [place]. History of lithotripsy (11/22/08) Left kidney, Cystoscopy with ureteral stent. Performed by Dr. Ochoa at [facility] in [place]. History of suburethral sling procedure (01/12/20) Solyx single incision suburethral sling. Performed by Dr. Barrera at [facility] in [place] History of tubal ligation (06/29/09) Essure. Performed by Dr. Winchester at [facility] in [place]. Hx of carpal tunnel repair (~2019) R hand Predislocation syndrome of metatarsophalangeal joint of left foot surgically repaired Status post cervical spinal fusion (~04/2022) Family History Family/Other Diabetes Paternal uncle Heart disease maternal aunt Breast cancer Maternal great aunt--dx age 36 Thyroid condition maternal aunt Ovarian cancer Maternal Aunt-- dx age 37 Unsure if ovarian or uterine Stroke Paternal Uncle Grandmother Diabetes Maternal Heart disease maternal Father Hypertension Denies family history of Colon cancer Uterine cancer Social History Smoking and tobacco status: never smoked Last substance use date: 04/02/22 Female Reproductive History: Para: 1 Spontaneous abortions: No Physical Exam Const: COMMON NORMALS: patient oriented x3 HENMT: COMMON NORMALS: normocephalic HEAD & SCALP: normocephalic MOUTH: Normal oral and palatal mucosa present THROAT: posterior oropharynx normal and uvula midline Neck/C-Spine: COMMON NORMALS: supple GENERAL: Yes normal visual inspection Resp: COMMON NORMALS: normal respiratory effort, No retractions, No use of accessory muscles and clear to auscultation bilaterally AUSCULTATION: clear to auscultation bilaterally Cardio: COMMON NORMALS: regular rate, regular rhythm, S1 normal heart sound present, S2 normal heart sound present, No gallops present (Cardio), No clicks present (Cardio), No murmurs present (Cardio) and Peripheral pulses 2+ throughout RATE: regular rate RHYTHM: regular rhythm HEART SOUNDS: S1 normal heart sound present and S2 normal heart sound present PERIPHERAL PULSES: Peripheral pulses 2+ throughout GI: COMMON NORMALS: Normal to inspection, nondistended, normoactive bowel sounds present, Soft to palpation, non-tender and no masses PALPATION: Yes Soft to palpation : COMMON NORMALS: Yes no CVA tenderness BLADDER/KIDNEY EXAM: Yes no CVA tenderness Back/Pelvis: COMMON NORMALS: no CVA tenderness Extremity: NARRATIVE EXTREMITY EXAM: Right lower extremity-1+ pitting edema. No erythema or warmth noted. Patient does have some tenderness upon palpation throughout lower leg. Previous diagnosis of cellulitis seems to have improved greatly. Neuro: COMMON NORMALS: patient oriented x3 GAIT: Yes Normal gait present Skin: GENERAL SKIN EXAM: dry skin Course Vital Signs: Vital signs: Vital Signs Pulse Rate 81 11/16/22 14:15 Respiratory Rate 16 11/16/22 14:15 Blood Pressure 127/83 11/16/22 14:15 Pulse Oximetry 97 11/16/22 14:15 Oxygen Delivery Me thod 11/16/22 14:15 MDM - Extremity (Nontraumatic) Medical Decision Making Patient is a 47-year-old female comes to the ED with right leg swelling and pain. Patient has past medical history of COPD and hypertension. Patient was sent here by Dr. Wise for ultrasound to check for blood clot on right lower extremity. Patient was recently diagnosed with right lower extremity cellulitis and finished taking her last dose of antibiotic today. The redness has improved along with some of the swelling in right lower leg as well. She still having some swelling and pain in right lower leg, so she was sent here to the ED for an ultrasound to check for DVT. Patient also complaining of having on and off sharp chest pain in the middle of her chest that is been going on now for over a month. Pain occurs while at rest or when she is up ambulating. Denies any worsening or improving factors. Vital stable. Patient appears in no acute distress or pain.Right lower extremity-1+ pitting edema. No erythema or warmth noted. Patient does have some tenderness upon palpation throughout lower leg. Previous diagnosis of cellulitis seems to have improved greatly. Rest of exam is benign. Labs are unremarkable and troponin negative. EKG showed no acute findings. Ultrasound venous duplex of right lower extremity showed a Jarvis's cyst but no evidence of DVT. Chest x-ray showed no acute findings. Patient was stable for discharge home and diagnosed with pain and swelling of right lower leg, Jarvis's cyst of knee and atypical chest pain. Follow-up with PCP in the next week evaluation. Return to ED precautions given. Patient understood and agreed with plan. Lab Data I reviewed the patient's lab results. 11/16/22 12:21 11/16/22 12:21 Radiology Impressions Chest X-Ray 11/16/22 12:29 IMPRESSION: 1. No acute cardiopulmonary finding. Laboratory Results WBC 6.3 10^3/uL (4.0-10.0) 11/16/22 12:21 RBC 5.30 10^6/uL (4.1-5.3) 11/16/22 12:21 Hgb 16.9 g/dL (11.5-15.3) H 11/16/22 12:21 Hct 49.8 % (37.0-47.0) H 11/16/22 12:21 MCV 94.0 fl (81-99) 11/16/22 12:21 MCH 31.9 pg (28.0-34.0) 11/16/22 12:21 MCHC 33.9 g/dL (30.0-36.0) 11/16/22 12:21 RDW 12.7 % (12.1-15.1) 11/16/22 12:21 Plt Count 290 10^3/cmm (130-400) 11/16/22 12:21 MPV 9.7 fL (7.4-10.4) 11/16/22 12:21 Neut % (Auto) 54.8 % 11/16/22 12:21 Lymph % (Auto) 35.0 % 11/16/22 12:21 [place] % (Auto) 7.0 % 11/16/22 12:21 Eos % (Auto) 2.2 % 11/16/22 12:21 Baso % (Auto) 0.8 % 11/16/22 12:21 Neut # (Auto) 3.46 10^3/uL (1.8-7.7) 11/16/22 12:21 Lymph # (Auto) 2.2 10^3/uL (0.8-4.8) 11/16/22 12:21 [place] # (Auto) 0.4 10^3/uL (0.2-0.9) 11/16/22 12:21 Eos # (Auto) 0.1 10^3/uL (0.0-0.8) 11/16/22 12:21 Baso # (Auto) 0.1 10^3/uL (0.0-0.1) 11/16/22 12: Nucleated RBC % (auto) 0 % 11/16/22 12: Nucleated RBCs # 0.0 /100WBC 11/16/22 12:21 Sodium 137 mmol/L (136-145) 11/16/22 12:21 Potassium 4.4 mmol/L (3.5-5.1) 11/16/22 12:21 Chloride 99 mmol/L (98-107) 11/16/22 12:21 Carbon Dioxide 26 mmol/L (22-29) 11/16/22 12:21 Anion Gap 16.4 (5-19) 11/16/22 12:21 BUN 9 mg/dL (6-20) 11/16/22 12:21 Creatinine 0.6 mg/dL (0.5-0.9) 11/16/22 12:21 GFR Calculation 106.7 mL/min (90-130) 11/16/22 12:21 Glucose 96 mg/dL (65-115) 11/16/22 12:21 Calculated Osmolality 283 mOsm/kg (285-295) L 11/16/22 12:21 Calcium 9.1 mg/dL (8.5-10.5) 11/16/22 12:21 Total Bilirubin 0.4 mg/dL (0.15-1.2) 11/16/22 12:21 AST 14 U/L (0-32) 11/16/22 12:21 ALT 11 U/L (0-33) 11/16/22 12:21 Alkaline Phosphatase 93 U/L (35-105) 11/16/22 12:21 Troponin T Baseline 6 ng/L (0-10) 11/16/22 12:21 Total Protein 7.0 g/dL (6.6-8.7) 11/16/22 12:21 Albumin 4.2 g/dL (3.5-5.2) 11/16/22 12:21 Globulin 2.8 g/dL (1.3-4.6) 11/16/22 12:21 EKG Data EKG 1: EKG interpretation date: 11/16/22 Interpretation: Normal sinus rhythm, 71 bpm, no ST segment elevation or depression seen. Discharge Plan Discharge Patient Disposition: Home Clinical Impression: Pain and swelling of right lower leg, Atypical chest pain Jarvis's cyst of knee Qualifiers: Laterality: right Qualified Code(s): M71.21 - Synovial cyst of popliteal space [Jarvis], right knee Condition: Stable Prescriptions: No Action budesonide-formoterol [Symbicort] 80-4.5 mcg/actuation HFA aerosol inhaler 2 puff inhalation BID bupropion HCl [Wellbutrin XL] 300 mg tablet extended release 24 hr 300 mg PO QAM Qty: 30 2RF paroxetine HCl 40 mg tablet 40 mg PO QAM Qty: 30 2RF oxcarbazepine [Trileptal] 150 mg tablet 150 mg PO BID Qty: 60 2RF (DME) Cane See Rx Instructions .Route .MEDSUPPLY Qty: 1 0RF Rx Instructions: As directed spironolactone 100 mg tablet 200 mg PO DAILY Qty: 60 11RF gabapentin 600 mg tablet 600 mg PO TID Qty: 270 0RF Rx Instructions: Take 1 tablet three times daily estradiol 1 mg tablet 1 mg PO DAILY Qty: 90 2RF Rx Instructions: take in conjunction with provera medroxyprogesterone [Provera] 5 mg tablet 5 mg PO DAILY Qty: 90 3RF Rx Instructions: take in conjunction with estradiol baclofen 10 mg tablet 10 mg PO TID Qty: 270 1RF Rx Instructions: Take 1 in the morning, 1 at noon, and 2 at night before bed celecoxib [Celebrex] 100 mg capsule 100 mg PO BID Qty: 60 2RF nystatin [Nyamyc] 100,000 unit/gram powder See Rx Instructions .ROUTE .COMPLEX Qty: 60 1RF Dose Instruction: APPLY TO THE AFFECTED AREA(S) FOUR TIMES DAILY NEEDED FOR SKIN yeast Rx Instructions: APPLY TO THE AFFECTED AREA(S) FOUR TIMES DAILY NEEDED FOR SKIN yeast lorazepam 0.5 mg tablet 0.5 mg PO DAILY PRN (Reason: anxiety) Qty: 15 0RF losartan 25 mg Tablet 25 mg PO DAILY hydrochlorothiazide 25 mg tablet 25 mg PO DAILY Ventolin HFA 90 mcg/actuation HFA aerosol inhaler 2 puff inhalation Q6H PRN (Reason: Shortness Of Breath Or Wheezing) Vitamin B-12 250 mcg Tablet 250 mcg PO DAILY Women's Multivitamin 18 mg iron-400 mcg-500 mg Tablet 1 tab PO DAILY Discharge Orders: Discharge ED (Routine); Ordered 11/16/22 Ordered By: Fernandez Gonzalez Referrals: Mason Boyd DO [Primary Care Provider] - Discharge Diet: Regular Discharge Activity: Increase activity as tolerated Patient Instructions: Leg Edema (ED) Activity Restrictions/Additional Instructions: Follow-up with medical provider as directed continue taking all home medications as previously prescribed. Rest, ice and elevate right lower extremity to help with symptoms. Wear compression stockings to help with edema. Return to the ER or your medical provider if condition worsens. Please read and understand discharge instructions. Thank you for choosing [facility] for your healthcare needs today. Please realize this is an emergency room and that we are providing you with a medical screening exam and this may not be complete and all inclusive of all the testing and or work up that you may need to determine your ailment or severity of your illness. It is very important that you follow up as instructed or that you return to the Emergency Department should you have concerns or if your condition changes or worsens in any way. Coding Level of Care Code ED Shuttle Filler for Fernanda Nguyen
[2022-11-16 13:00] LABS: Alanine Aminotransferase 11 U/L (0-33); Albumin Level 4.2 g/dL (3.5-5.2); Alkaline Phosphatase 93 U/L (35-105); Aspartate Amino Transferase 14 U/L (0-32); Blood Urea Nitrogen 9 mg/dL (6-20); Calcium 9.1 mg/dL (8.5-10.5); Carbon Dioxide 26 mmol/L (22-29); Chloride 99 mmol/L (98-107); Globulin 2.8 g/dL (1.3-4.6); Glomerular Filtration Rate 106.7 mL/min (90-130); Glucose 96 mg/dL (65-115); Osmolality Calculated 283 mOsm/kg (285-295); Sodium 137 mmol/L (136-145); Total Bilirubin 0.4 mg/dL (0.15-1.2)
[2022-11-16 13:03] LABS: Anion Gap 16.4 (5-19); Potassium 4.4 mmol/L (3.5-5.1)
[2022-11-16 13:11] VITALS: BP 123/98; PULSE 78; RESP 16; O2SAT 93
[2022-11-16 13:14] LABS: Troponin(5th) Baseline 6 ng/L (0-10)
[2022-11-16 14:15] VITALS: BP 127/83; PULSE 81; RESP 16; O2SAT 97
== END 2022-11-16 14:16 | disposition home or self-care (01) ==
PROVIDERS: Emergency Provider Physician Assistant; PCP Family Medicine
DX: M71.21 Synovial cyst of popliteal space [Baker], right knee (principal); M79.89 Other specified soft tissue disorders; R07.89 Other chest pain; J44.9 Chronic obstructive pulmonary disease, unspecified; I10 Essential (primary) hypertension
CPT/HCPCS: 36415; 71045; 80053; 84484; 85025; 93005; 93971; 99285

== ENCOUNTER 2022-11-23 12:53 | Outpatient (CLI) | payer MEDICAID, SELFPAY ==
--- NOTE | 2022-11-23 13:45 | MR_ITS ---
WS: [id number] MRI LUMBAR SPINE NONCONTRAST TECHNIQUE: Sagittal T1, T2 and STIR imaging. Axial T1 and T2 imaging. CLINICAL INFORMATION: saddle anesthesia, weakness of BLE, increased pain COMPARISON: MRI lumbar November 14, 2021 FINDINGS: Interval postoperative changes LEFT hemilaminectomy L2-L3, L3-L4, L4-L5, and L5-S1. Mild lumbar curve. No acute compression. Disc space narrowing worse at L3-L4 and L4-L5. L1-L2: Mild disc bulging with slight effacement of ventral thecal sac. Mild central canal stenosis ap pears progressed. Moderate facet arthropathy. Mild RIGHT greater than LEFT foraminal narrowing. L2-L3: Mild disc bulging with moderate facet arthropathy results in moderate to severe central canal stenosis. This is slightly improved compared to previous with LEFT hemilaminectomy with residual narr owing. Redundancy of the cauda equina nerve rootlets. Mild LEFT foraminal narrowing. L3-L4: Mild disc bulging with mild central canal stenosis. Impingement traversing L4 nerve roots bila terally. Moderate facet arthropathy. Spinal canal stenosis appears improved compared to previous. Mod erate LEFT foraminal narrowing. Mild RIGHT foraminal narrowing. L4-L5: Mild annular bulging with mild central canal stenosis. Slight impingement traversing L5 nerve roots bilaterally. This appears improved compared to previous. LEFT hemilaminectomy. Moderate LEFT an d mild RIGHT foraminal narrowing. L5-S1: LEFT hemilaminectomy. Mild disc bulging with slight effacement of the ventral thecal sac. Mild RIGHT foraminal narrowing. LEFT foramen is patent. Moderate facet arthropathy. Visualized pelvic bony structures: Normal. Paravertebral soft tissues: Normal. MR/MR lumbar spine wo con* [id number] IMPRESSION: 1. Mild lumbar curve. No acute compression. 2. Moderate to severe residual narrowing of the thecal sac L2-L3. This appears slightly improved compared to previous but persistent or recurrent. LEFT hemil aminectomy. 3. Improved central canal stenosis L3-L4 L4-L5 and L5-S1. 4. Mild central canal stenosis L1-L2 appears progressed compared to previous. 5. Moderate LEFT L3-L4 and LEFT L4-L5 foraminal narrowing. 6. Multilevel moderate facet arthropathy worse at L4-L5 and L5-S1. 7. Interval postoperative changes LEFT hemilaminectomy L2-L3, L3-L4, L4-L5, an d L5-S1.
== END 2022-11-23 12:54 | disposition home or self-care (01) ==
LOC: RAD 12:54
PROVIDERS: PCP Family Medicine; Visit Provider Orthopaedic Surgery
DX: M47.26 Other spondylosis with radiculopathy, lumbar region (principal); M51.36 Other intervertebral disc degeneration, lumbar region; M48.062 Spinal stenosis, lumbar region with neurogenic claudication; R20.0 Anesthesia of skin
CPT/HCPCS: 72148

== ENCOUNTER → 2022-12-04 09:57 | Outpatient (BNVA) | payer MEDICAID, SELFPAY | PROVIDERS: PCP Family Medicine; Visit Provider Physician Assistant | DX: M48.062 Spinal stenosis, lumbar region with neurogenic claudication (principal); M51.36 Other intervertebral disc degeneration, lumbar region | CPT/HCPCS: 99213 ==

== ENCOUNTER 2022-12-11 06:09 | Outpatient (CLI) | payer MEDICAID, SELFPAY | END 2022-12-11 06:10 | disposition home or self-care (01) | LOC: SLEEP 12-12 06:10 | PROVIDERS: PCP Family Medicine; Visit Provider Family Medicine | DX: G47.33 Obstructive sleep apnea (adult) (pediatric) (principal) | CPT/HCPCS: 95811 ==

== ENCOUNTER → 2022-12-18 09:42 | Outpatient (BNVA) | payer MEDICAID, SELFPAY | PROVIDERS: PCP Family Medicine; Visit Provider Orthopaedic Surgery | DX: M75.101 Unspecified rotator cuff tear or rupture of right shoulder, not specified as traumatic (principal) | CPT/HCPCS: 99213 ==

== ENCOUNTER → 2023-01-07 13:09 | Outpatient (BNVA) | payer MEDICAID, SELFPAY | PROVIDERS: PCP Family Medicine; Visit Provider Specialist | DX: R25.1 Tremor, unspecified (principal) | CPT/HCPCS: 99213 ==

== ENCOUNTER → 2023-03-12 09:11 | Outpatient (BNVA) | payer MEDICAID, SELFPAY | PROVIDERS: PCP Family Medicine; Visit Provider Physician Assistant | DX: M54.50 Low back pain, unspecified (principal); M47.26 Other spondylosis with radiculopathy, lumbar region; Z98.890 Other specified postprocedural states | CPT/HCPCS: 99213 ==

== ENCOUNTER 2023-04-08 11:49 | Outpatient (CLI) | payer MEDICAID, SELFPAY ==
--- NOTE | 2023-04-08 11:45 | MR_ITS ---
WS: [id number] MRI LUMBAR SPINE NONCONTRAST TECHNIQUE: Sagittal T1, T2 and STIR imaging. Axial T1 and T2 imaging. CLINICAL INFORMATION: lumbar pain COMPARISON: None. FINDINGS: Mild to moderate central canal stenosis in the cervical spine on the fund manager imaging with disc bulging at C3-C4 and C4-C5. Prior anterior fusion at C5-C7. L1-L2: Mild disc bulging with slight effacement of the thecal sac. Mild central canal stenosis. Moder ate facet arthropathy. Mild RIGHT foraminal narrowing. L2-L3: Mild disc bulging with moderate central canal stenosis. Moderate facet arthropathy. Impingemen t subarticular recess. Mild bilateral foraminal narrowing. L3-L4: Mild disc bulging with narrowing of the subarticular recess bilaterally. Prior laminectomy def ects. Mild central canal stenosis. Moderate LEFT and mild RIGHT foraminal narrowing. Moderate facet a rthropathy. L4-L5: Mild disc bulging with a narrowing of the subarticular recess bilaterally. Moderate facet arth ropathy. Moderate LEFT and mild RIGHT foraminal narrowing with small foraminal protrusions. Moderate facet arthropathy. L5-S1: Mild disc bulging with slight effacement of the ventral thecal sac. Slight impingement linda ing S1 nerve roots bilaterally. Mild bilateral foraminal narrowing. Moderate facet arthropathy. Prior laminectomy defects. Adrenal glands are normal. Visualized pelvic bony structures: Normal. Paravertebral soft tissues: Normal. IMPRESSION: 1. Previous postoperative changes LEFT hemilaminectomy L2-3, L3-L4, L4-L5, and L5-S1. 2. Moderate narrowing of the thecal sac L2-3 appears slightly improved compared to previous. Persist ent narrowing of the subarticular recess bilaterally. 3. Stable mild residual central canal stenosis L3-L4 L4-L5 and L5-S1 compared to 11/23/2022. 4. Mild central canal stenosis L1-2 appears stable. 5. Stable foraminal narrowing moderate LEFT L3-4 and bilateral L4-5 LEFT greater than RIGHT. Small f oraminal protrusions L4-5. 6. Otherwise no significant changes compared to previous.
== END 2023-04-08 11:50 | disposition home or self-care (01) ==
PROVIDERS: PCP Family Medicine; Visit Provider Physician Assistant
DX: M54.50 Low back pain, unspecified (principal); M48.061 Spinal stenosis, lumbar region without neurogenic claudication
CPT/HCPCS: 72148

== ENCOUNTER → 2023-05-02 10:23 | Outpatient (BNVA) | payer MEDICAID, SELFPAY | PROVIDERS: PCP Family Medicine; Visit Provider Physician Assistant | DX: M48.062 Spinal stenosis, lumbar region with neurogenic claudication (principal); E66.01 Morbid (severe) obesity due to excess calories; M47.26 Other spondylosis with radiculopathy, lumbar region; Z68.42 Body mass index [BMI] 45.0-49.9, adult | CPT/HCPCS: 99214 ==

== ENCOUNTER → 2023-12-03 15:02 | Outpatient (BNVA) | payer MEDICARE, MEDICAID, SELFPAY ==
[2023-08-13 14:45] VITALS: BP 138/90; BMI 49.6
== END ==
PROVIDERS: PCP Family Medicine; Visit Provider Orthopaedic Surgery
DX: M47.12 Other spondylosis with myelopathy, cervical region (principal)
CPT/HCPCS: 72050; 99214

== ENCOUNTER → 2023-12-17 11:09 | Outpatient (BNVA) | payer MEDICARE, MEDICAID, SELFPAY ==
[2023-08-13 14:45] VITALS: BP 138/90; BMI 49.6
== END ==
PROVIDERS: PCP Family Medicine; Visit Provider Family Medicine
DX: I10 Essential (primary) hypertension (principal); J44.9 Chronic obstructive pulmonary disease, unspecified; E11.9 Type 2 diabetes mellitus without complications; R79.89 Other specified abnormal findings of blood chemistry; E55.9 Vitamin D deficiency, unspecified
CPT/HCPCS: 80053; 80061; 82306; 82607; 84439; 84443; 85025

== ENCOUNTER 2023-12-25 09:02 | Outpatient (CLI) | payer MEDICARE, MEDICAID, SELFPAY ==
[2023-08-13 14:45] VITALS: BP 138/90; BMI 49.6
--- NOTE | 2023-12-25 09:14 | MM_ITS ---
WS: [id number] BILATERAL SCREENING DIGITAL TOMOSYNTHESIS MAMMOGRAM WITH CAD HISTORY: SCREEN COMPARISON: 03/22/2021, 06/05/2011 Bilateral CC and MLO views with tomosynthesis and synthetic mammography submitted. Computer aided det ection analyzed. Breast composition: There are scattered areas of fibroglandular density. No suspicious masses, microc alcifications or architectural distortion. Partially calcified fibroadenoma in the anterior LEFT risa st. There are a few additional scattered calcifications. No mass or distortion. MM/[place] [id number] IMPRESSION: BI-RADS: 2-Benign FOLLOW UP: 1 Year Follow-up
== END 2023-12-25 09:03 | disposition home or self-care (01) ==
LOC: RAD 09:03
PROVIDERS: PCP Family Medicine; Visit Provider Family Medicine
DX: Z12.31 Encounter for screening mammogram for malignant neoplasm of breast (principal)
CPT/HCPCS: 77063; 77067

== ENCOUNTER → 2024-01-08 10:15 | Outpatient (BNVA) | payer MEDICARE, OTHER, SELFPAY ==
[2023-08-13 14:45] VITALS: BP 138/90; BMI 49.6
== END ==
PROVIDERS: PCP Family Medicine; Visit Provider Psychiatry & Neurology Psychiatry
DX: F60.3 Borderline personality disorder (principal); F33.2 Major depressive disorder, recurrent severe without psychotic features; F43.12 Post-traumatic stress disorder, chronic; F41.1 Generalized anxiety disorder; F17.200 Nicotine dependence, unspecified, uncomplicated; I10 Essential (primary) hypertension; E11.9 Type 2 diabetes mellitus without complications
CPT/HCPCS: 80061; 83036

== ENCOUNTER → 2024-01-16 08:12 | Outpatient (BNVA) | payer MEDICARE, SELFPAY ==
[2024-01-14 15:06] VITALS: BP 131/100; BMI 51.0
== END ==
PROVIDERS: PCP Family Medicine; Visit Provider Orthopaedic Surgery
DX: M54.2 Cervicalgia (principal); M47.12 Other spondylosis with myelopathy, cervical region; Z98.1 Arthrodesis status
CPT/HCPCS: 72040; 99214

== ENCOUNTER → 2024-01-17 08:18 | Outpatient (BNVA) | payer MEDICARE, MEDICAID, SELFPAY ==
[2024-01-14 15:06] VITALS: BP 131/100; BMI 51.0
== END ==
PROVIDERS: PCP Family Medicine; Visit Provider Student in an Organized Health Care Education/Training Program
DX: M17.12 Unilateral primary osteoarthritis, left knee (principal); M25.562 Pain in left knee; G89.29 Other chronic pain
CPT/HCPCS: 73560; 73565; 99204

== ENCOUNTER → 2024-03-03 11:14 | Outpatient (BNVA) | payer MEDICARE, MEDICAID, SELFPAY ==
[2024-01-14 15:06] VITALS: BP 131/100; BMI 51.0
== END ==
PROVIDERS: PCP Family Medicine; Visit Provider Physician Assistant
DX: M17.12 Unilateral primary osteoarthritis, left knee
CPT/HCPCS: 20610; 99213; J7318

== ENCOUNTER 2024-07-24 10:42 | Outpatient (CLI) | payer MEDICARE, MEDICAID, SELFPAY ==
[2024-01-14 15:06] VITALS: BP 131/100; BMI 51.0
--- NOTE | 2024-07-24 10:45 | XR_ITS ---
WS: [id number] XR shoulder LT min 2V* [id number] REASON FOR EXAM: left shoulder pain FINDINGS: No fracture or focal bone lesion. Acromioclavicular joint space intact and relatively well preserved. Glenohumeral joint space not optimally demonstrated. There is moderate subchondral sclerosis and cyst ic change in the glenoid. There is mild to moderate osteophytosis of the humeral head. Minimal sclerosis in the greater biceps tuberosity. XR/XR shoulder LT min 2V* [id number] IMPRESSION: Osteoarthritis of the glenohumeral joint of uncertain severity. Likely at least moderate. Minimal rotator cuff tendon arthropathy.
[2024-07-24 11:11] LABS: Basophils % 0.5 %; Eosinophils # 0.2 10^3/uL (0.0-0.8); Eosinophils % 3.1 %; Hematocrit 50.3 % (36-47); Lymphocytes # 2.2 10^3/uL (0.8-4.8); Lymphocytes % 28.2 %; Mean Corpuscular HGB Conc 33.2 g/dL (30-55); Mean Corpuscular Hemoglobin 32.1 pg (27-33); Mean Corpuscular Volume 96.7 fl (85-98); Mean Platelet Volume 9.4 fL (7.4-10.4); Monocytes # 0.4 10^3/uL (0.2-0.9); Monocytes % 5.4 %; Neutrophils # 4.77 10^3/uL (1.8-7.7); Neutrophils % 62.7 %; Nucleated Red Blood Cells % 0 %; Platelet Count 282 10^3/cmm (157-399); Red Cell Distribution Width 13.2 % (12.1-15.1); White Blood Count 7.62 10^3/uL (3.29-11.43)
[2024-07-24 11:28] LABS: Alanine Aminotransferase 30 U/L (0-33); Albumin Level 4.2 g/dL (3.5-5.2); Alkaline Phosphatase 92 U/L (35-105); Anion Gap 13.8 (5-19); Aspartate Amino Transferase 18 U/L (0-32); Blood Urea Nitrogen 11 mg/dL (6-20); Calcium 9.7 mg/dL (8.5-10.5); Carbon Dioxide 29 mmol/L (22-29); Chloride 98 mmol/L (98-107); Globulin 2.6 g/dL (1.3-4.6); Glomerular Filtration Rate 88.6 mL/min (90-130); Glucose 130 mg/dL (65-115); Osmolality Calculated 283 mOsm/kg (285-295); Potassium 4.8 mmol/L (3.5-5.1); Sodium 136 mmol/L (136-145); Total Bilirubin 0.5 mg/dL (0.15-1.2); Total Protein 6.8 g/dL (6.6-8.7)
[2024-07-24 11:30] LABS: Estmated Average Glucose 120; Hemoglobin A1C 5.8 % (4.0-6.0)
== END 2024-07-24 10:43 | disposition home or self-care (01) ==
LOC: LAB 10:44
PROVIDERS: PCP Family Medicine
DX: M19.012 Primary osteoarthritis, left shoulder (principal); I10 Essential (primary) hypertension; E11.9 Type 2 diabetes mellitus without complications
CPT/HCPCS: 36415; 73030; 80053; 83036; 85025

== ENCOUNTER → 2024-09-28 09:47 | Outpatient (BNVA) | payer MEDICARE, OTHER, SELFPAY ==
[2024-01-14 15:06] VITALS: BP 131/100; BMI 51.0
== END ==
DX: R52 Pain, unspecified (principal)
CPT/HCPCS: 87400

== ENCOUNTER → 2024-10-01 10:08 | Outpatient (BNVA) | payer MEDICARE, OTHER, SELFPAY ==
[2024-01-14 15:06] VITALS: BP 131/100; BMI 51.0
== END ==
PROVIDERS: Visit Provider Nurse Practitioner Women's Health
DX: E55.9 Vitamin D deficiency, unspecified (principal); N91.2 Amenorrhea, unspecified
CPT/HCPCS: 82306; 82670; 83001

== ENCOUNTER → 2024-11-11 16:22 | Outpatient (BNVA) | payer MEDICARE, OTHER, SELFPAY ==
[2024-01-14 15:06] VITALS: BP 131/100; BMI 51.0
== END ==
PROVIDERS: Visit Provider Nurse Practitioner Women's Health
DX: Z00.00 Encounter for general adult medical examination without abnormal findings (principal)
CPT/HCPCS: 87624

== ENCOUNTER → 2024-11-12 09:57 | Outpatient (BNVA) | payer MEDICARE, MEDICAID, SELFPAY ==
[2024-01-14 15:06] VITALS: BP 131/100; BMI 51.0
== END ==
PROVIDERS: Visit Provider Nurse Practitioner Family
DX: F42.4 Excoriation (skin-picking) disorder (principal); L29.89 Other pruritus; L81.4 Other melanin hyperpigmentation; D22.5 Melanocytic nevi of trunk; B07.8 Other viral warts; Z78.9 Other specified health status; L91.8 Other hypertrophic disorders of the skin; R20.8 Other disturbances of skin sensation; L57.0 Actinic keratosis; X32.XXXA Exposure to sunlight, initial encounter
CPT/HCPCS: 17000; 17110; 99204

== ENCOUNTER → 2024-12-29 08:38 | Outpatient (BNVA) | payer MEDICARE, SELFPAY ==
[2024-01-14 15:06] VITALS: BP 131/100; BMI 51.0
== END ==
PROVIDERS: Visit Provider Student in an Organized Health Care Education/Training Program
DX: M19.012 Primary osteoarthritis, left shoulder (principal)
CPT/HCPCS: 73030; 99213

== ENCOUNTER → 2025-01-12 10:04 | Outpatient (BNVA) | payer MEDICARE, SELFPAY ==
[2024-01-14 15:06] VITALS: BP 131/100; BMI 51.0
== END ==
PROVIDERS: Visit Provider Nurse Practitioner Women's Health
DX: E55.9 Vitamin D deficiency, unspecified (principal)
CPT/HCPCS: 82306

== ENCOUNTER → 2025-02-26 14:11 | Outpatient (BNVA) | payer MEDICARE, SELFPAY ==
[2024-01-14 15:06] VITALS: BP 131/100; BMI 51.0
== END ==
PROVIDERS: Visit Provider Nurse Practitioner Women's Health
DX: R87.615 Unsatisfactory cytologic smear of cervix (principal)
CPT/HCPCS: 87624

== ENCOUNTER → 2025-03-31 13:45 | Outpatient (BNVA) | payer MEDICARE, MEDICAID, SELFPAY ==
[2024-01-14 15:06] VITALS: BP 131/100; BMI 51.0
== END ==
PROVIDERS: Visit Provider Student in an Organized Health Care Education/Training Program
DX: M19.012 Primary osteoarthritis, left shoulder (principal)
CPT/HCPCS: 99213

== ENCOUNTER 2025-04-21 11:29 | Outpatient (CLI) | payer MEDICARE, MEDICAID, SELFPAY ==
[2024-01-14 15:06] VITALS: BP 131/100; BMI 51.0
--- NOTE | 2025-04-21 11:33 | MM_ITS ---
WS: [id number] BILATERAL 3D TOMOSYNTHESIS DIGITAL SCREENING MAMMOGRAPHY WITH CAD CLINICAL INFORMATION: SCREENING HISTORY: Screening mammogram. No current complaints. COMPARISON: 12/25/2023 TECHNIQUE: Bilateral CC and MLO views. FINDINGS: Scattered fibroglandular densities bilaterally. No suspicious focal mass, asymmetry, calcifications, or architectural distortion. No evidence of malignancy. Involuting partially calcified fibroadenoma anterior LEFT breast. A few incidental punctate calcifications LEFT breast. A few small nodular densit ies upper outer LEFT breast unchanged. IMPRESSION: MM/MM scr BI tomosynthesis [id number] DENSITY: There are scattered areas of fibroglandular density. BI-RADS: 2 - Benign. FOLLOW UP: 1 Year Follow-up Recommend return to annual screening mammography.
== END 2025-04-21 11:30 | disposition home or self-care (01) ==
LOC: RAD 11:29
PROVIDERS: PCP Family Medicine; Visit Provider Family Medicine
DX: Z12.31 Encounter for screening mammogram for malignant neoplasm of breast (principal); R92.323 Mammographic fibroglandular density, bilateral breasts; R92.1 Mammographic calcification found on diagnostic imaging of breast; N60.22 Fibroadenosis of left breast; N63.21 Unspecified lump in the left breast, upper outer quadrant
CPT/HCPCS: 77063; 77067

== ENCOUNTER → 2025-04-28 14:31 | Outpatient (BNVA) | payer MEDICARE, MEDICAID, SELFPAY ==
[2024-01-14 15:06] VITALS: BP 131/100; BMI 51.0
== END ==
DX: E11.9 Type 2 diabetes mellitus without complications (principal)
CPT/HCPCS: 80053; 83036; 85025

== ENCOUNTER → 2025-06-23 10:22 | Outpatient (BNVA) | payer MEDICARE, MEDICAID, OTHER, SELFPAY ==
[2024-01-14 15:06] VITALS: BP 131/100; BMI 51.0
== END ==
PROVIDERS: Visit Provider Nurse Practitioner Women's Health
DX: E55.9 Vitamin D deficiency, unspecified (principal)
CPT/HCPCS: 82306